=== PATIENT | male | born 2000 | race African-American/Black ===

== ENCOUNTER 2020-02-29 15:41 | Emergency (ER) | payer SELFPAY ==
[~2020-02-29] VITALS: Ht 170.2 cm; Wt 81.6 kg
[2020-02-29] MEDS ORDERED: SODIUM CHLORIDE 0.9% 1000ML 1,000 ML IV STA (16:18)
[2020-02-29] MEDS ORDERED: ONDANSETRON HCL INJ 2MG/ML 2ML 2 MG/ML VIAL IV STA (16:18)
--- NOTE | 2020-02-29 16:18 | Emergency Department Note ---
History of Present Illnes History of Present Illness Chief Complaint: Abdominal Complaints History of Present Illness This is a 19 year old male complaining of epigastric abdominal pain for several days. Days, states he was diagnosed with gastritis in the past but this feels different.. Chief Complaint Comment C/O CONSTANT EPIGASTRIC PAIN RADIATING TO LOWER ABD STARTED SUN C/O N/V/D STATES HE NOTICED DARK RED BLOOD IN STOOLS AND NOTICED SOME BLOOD IN VOMIT LAST MEAL SUN AT [employer] SINCE THEN ANYTIME HE EATS HE VOMITS STATES HE STOPPED SMOKING MARIJUANA LAST WEEK DENIES ETOH DENIES TOBACCO USE DENIES DYSURIA/HEMATURIA STILL HAS APPENDIX/GALLBLADDER STATES PAIN IS WORSE WHEN EATING Historian: Patient Arrival Mode: Car Onset (how long ago): week(s) Radiation: Reports non-radiation Severity: moderate Onset quality: gradual Duration (how long): day(s) Timing of current episode: constant Progression: worsening Chronicity: new Relieving factors: none Exacerbating factors: none Past Medical/Family History Physician Review I have reviewed the patient's past medical and family history. Any updates have been documented here. Past Medical History Recent Fever: No Clinical Suspicion of Infectio: No New/Unexplained Change in Ment: No Past Medical History: None Past Surgical History: None Social History Smoking Cessation: Former smoker Alcohol Use: Social Physically hurt or threatened: No Review of Systems Review of Systems Constitutional: Reports no symptoms EENTM: Reports no symptoms Cardiovascular: Reports no symptoms Respiratory: Reports no symptoms Gastrointestinal: Reports as per HPI, Reports abdominal pain Genitourinary: Reports no symptoms Musculoskeletal: Reports no symptoms Integumentary: Reports no symptoms Neurological: Reports no symptoms Psychological: Reports no symptoms Endocrine: Reports no symptoms Hematological/Lymphatic: Reports no symptoms Physical Exam Related Data Allergies: Coded Allergies: No Known Allergies (Unverified , 02/29/20) Triage Vital Signs Vital Signs Date Time Temp Pulse Resp B/P (MAP) Pulse Ox O2 Delivery O2 Flow Rate FiO2 02/29/20 15:53 98.4 77 18 131/74 100 Room Air Vital signs reviewed: Yes Physical Exam CONSTITUTIONAL Constitutional: Present well-developed, Present well-nourished HENT HENT: Present normocephalic, Present atraumatic, Present oropharynx clear/moist, Present nose normal HENT L/R: Present left ext ear normal, Present right ext ear normal EYES Eyes: Reports PERRL, Reports conjunctivae normal NECK Neck: Present ROM normal PULMONARY Pulmonary: Present effort normal, Present breath sounds normal CARDIOVASCULAR Cardiovascular: Present regular rhythm, Present heart sounds normal, Present capillary refill normal, Present normal rate GASTROINTESTINAL Abdominal: Present soft, Present nontender, Present tender GENITOURINARY Genitourinary: Present exam deferred SKIN Skin: Present warm, Present dry MUSCULOSKELETAL Musculoskeletal: Present ROM normal NEUROLOGICAL Neurological: Present alert, Present oriented x 3, Present no gross motor or sensory deficits PSYCHOLOGICAL Psychological: Present mood/affect normal, Present judgement normal Results Laboratory Lab results reviewed: Yes Imaging Imaging results reviewed: Yes Assessment & Plan Medical Decision Making MDM 19 oh male arrives the ED with abdominal pain, no concerns of acute surgical process. Patient noted relief with antiemetics, pain medicine and Protonix. Patient CT findings consistent gastritis. Spoke to patient at length about bland diet and avoiding acidic foods. Patient expressed understanding. Outpatient GI follow-up given. Assessment & Plan Final Impression: (1) Gastritis Depart Disposition: HOME, SELF-CARE Last Vital Signs Date Time Temp Pulse Resp B/P (MAP) Pulse Ox O2 Delivery O2 Flow Rate FiO2 02/29/20 15:53 98.4 77 18 131/74 100 Room Air Home Meds Active Scripts Omeprazole (OMEPRAZOLE) 40 Mg Capsule., 40 MG PO DAILY, #28 Prov:EVA WORLEY DO 02/29/20 EVA WORLEY DO Feb 29, 2020 16:18
[2020-02-29 16:25] LABS: BASOPHILS % 0.4 % (0.0-1.0); EOSINOPHILS % 0.2 % (0.0-6.0); HEMOGLOBIN 14.3 g/dL (14.0-18.0); LYMPHOCYTES # (AUTO) 2.8 (1.0-3.2); LYMPHOCYTES % 29.1 % (18.0-39.1); MEAN CORPUSCULAR HGB CONC 32.5 g/dL (31-35); MEAN CORPUSCULAR VOLUME 83.2 fL (81-99); MONOCYTES # (AUTO) 0.6 (0.2-0.8); NEUTROPHILS # (AUTO) 6.1 (2.1-6.9); PLATELET COUNT 226 x10e3/uL (140-360); RED BLOOD COUNT 5.29 x10e6/uL (4.3-5.7); RED CELL DISTRIBUTION WIDTH 11.8 % (11.7-14.4)
[2020-02-29] MEDS ORDERED: MORPHINE SULFATE INJ 4 MG/ML INJ 1ML IV PRN (16:30)
[2020-02-29 16:34] LABS: CLARITY,URINE CLEAR (CLEAR); COLOR,URINE YELLOW (YELLOW); KETONES,URINE 2+ (NEGATIVE); LEUKOCYTE ESTERASE ,URINE NEGATIVE (NEGATIVE); NITRITE,URINE NEGATIVE (NEGATIVE); URINE UROBILINOGEN 0.2 mg/dL (0.2 - 1)
[2020-02-29 16:35] LABS: BILIRUBIN,URINE MODERATE (NEGATIVE); PROTEIN,URINE DIPSTICK TRACE (NEGATIVE)
[2020-02-29 16:39] LABS: BLOOD UREA NITROGEN 15 mg/dL (7-26); CARBON DIOXIDE 20 mmol/L (22-29); CHLORIDE 105 mmol/L (98-107); CREATININE, SERUM 0.92 mg/dL (0.72-1.25); SODIUM 140 mmol/L (136-145)
[2020-02-29 16:40] LABS: ALANINE AMINOTRANSFERASE 19 IU/L (0-55); ALBUMIN 4.7 g/dL (3.5-5.0); ALBUMIN/GLOBULIN RATIO 1.5 (0.8-2.0); ALKALINE PHOSPHATASE 122 IU/L (40-150); BUN/CREATININE RATIO 16 (6-25); CALCIUM 9.9 mg/dL (8.4-10.2); EST GLOMERULAR FILTRATION RATE > 60 ML/MIN (60-); GLUCOSE 80 mg/dL (74-118)
[2020-02-29 16:47] LABS: WBC,URINE (MAN) 0-5 /HPF (0-5)
[2020-02-29 16:48] LABS: BACTERIA,URINE FEW /HPF; EPITHELIAL CELLS,URINE FEW /LPF; MUCUS,URINE MANY (RARE); RBC,URINE 0-5 /HPF (0-5)
[2020-02-29] MEDS ORDERED: SODIUM CHLORIDE 0.9% 50ML 50 ML ONE ×2 (17:22)
[2020-02-29] MEDS ORDERED: IOPAMIDOL 370 MG/ML 200 ML INFUS..BTL INJ ONE (17:22)
--- OUTSIDE RECORDS SUMMARY | 2020-02-29 17:38 | XMS REPORT | Continuity of Care Document ---
Author Author [facility] t Organization [facility] Address [address] [place] [address] Phone Unavailable Care Team Providers Care Lidar Scientist Name Role Phone Unavailable Unavailable Payers Payer Name Policy Type Policy Number Effective Date Expiration Date S ource Problems This patient has no known problems. Allergies, Adverse Reactions, Alerts Allergy Name Allergy Type Status Severity Reaction(s) Onset Date Inacti ve Date Treating Clinician Comments Source No Known Allergies DA Active U 2016-12-16 00:00:00 [facility] Medications This patient has no known medications. Procedures This patient has no known procedures. Results Test Description Test Time Test Comments Results Result Comments Source - CT ABD PELVIS W/CONT 2019-12-17 10:01:00 Estiven e: MELIDA LOVE [facility] : 2000 Age/S: 19 / M [address] [facility] Unit #: [id number] Loc: [place] [address] Phys: Jeanne Dobson MD Acct: [id number] Dis Date: Status: REG ER PHONE #: [phone] Exam Date: 12/17/2019 0955 FAX #: [phone] Reason: generalized abdominal cramping, n/v/d EXAMS: CPT CODE: [id number] CT ABD PELVIS W/CONT 80609 HISTORY: Abdominal pain and cramping. COMPARISON: CT scan from July 20162018. Location: TH. CT of abdomen and pelvis with IV contrast: Automated exposure control. CT ABDOMEN: The lung bases are clear. Dependent changes. Nodular rounded atelectasis within the right middle lobe anteromedially. 5.3 mm noncalcified right lateral basal subpleural lung nodule. The liver is enhancing homogeneously. No parenchymal mass or nodules. Portal vein and hepatic artery are patent. Gallbladder is without radiopaque stones. The liver is measuring 17 cm in length. The spleen is enhancing homogeneously. The spleen is not enlarged. The stomach distended incompletely however it is normal in appearance. Pancreas is enhancing homogeneously. Adrenals are normal. Kidneys are free from hydroureteronephrosis. Homogeneous enhancement. Bilateral excretion. No pathologic adenopathy. Well-opacified abdominal and pelvic vasculature. No bowel obstruction. Mild left colitis with circumferential wall thickening. Small bowel loops are normal. CT PELVIS: Appendix is normal. Pelvic bowel loops are unobstructed with circumferential wall thickening of the left colon with pericolonic inflammation and extending to the proximal sigmoid colon. No free fluid or free air or abscess. Unremarkable urinary bladder distended incompletely. The prostate is within normal limits. No pelvic pathologic adenopathy. Subcutaneous tissues and the musculature demonstrating mild right gynecomastia. No lytic or blastic lesions visible within the bony skeleton. PAGE 1 Signed Report (CONTINUED) Name: MELIDA LOVE [facility] : 2000 Age/S: 19 / M [address] [facility] Unit #: [id number] Loc: [place] [address] Phys: Jeanne Dobson MD Acct: [id number] Dis Date: Status: REG ER PHONE #: [phone] Exam Date: 12/17/2019 3756 FAX #: [phone] Reason: generalized abdominal cramping, n/v/d EXAMS: CPT CODE: [id number] CT ABD PELVIS W/CONT 82493 <Continued> IMPRESSION: Mild left and sigmoid colitis without free fluid, free air or abscess. Mild right gynecomastia. 5.3 mm anterolateral subpleural right basal lung nodule. This was barely visible on the exam of July 20162018. at 1001 Reported and signed by: Elijah Rodriguez M.D. CC: Jeanne Dobson MD; Riki Moreira Technologist:Wendy Bates CTDI: DLP: Trnscb Date/Time: 12/17/2019 (1001) [email or web address] Orig Print D/T: S: 12/17/2019 (1004) PAGE 2 Signed Report COMPREHENSIVE METABOLIC PANEL 2019-12-17 09:08:00 Test Item SODIUM (test code = NA) 141 mmol/L 136-145 N POTASSIUM (test code = K) 3.6 mmol/L 3.5-5.1 N CHLORIDE (test code = CL) 104 mmol/L 101-109 N CARBON DIOXIDE (test code = CO2) 28.1 mmol/L 21-32 N ANION GAP (test code = GAP) 13 mmol/L 10-20 N GLUCOSE (test code = GLU) 115 mg/dL 74-106 H BLOOD UREA NITROGEN (test code = BUN) 11 mg/dL 3-21 N CREATININE (test code = CREAT) 1.14 mg/dL 0.55-1.3 N BUN/CREATININE RATIO (test code = BUN/CREA) 9.6 10-20 L TOTAL PROTEIN (test code = PROT) 7.6 g/dL 6.5-8.4 N ALBUMIN (test code = ALB) 4.2 g/dL 3.4-4.8 N GLOBULIN (test code = GLOB) 3.4 G/DL 1-10 N ALBUMIN/GLOBULIN RATIO (test code = A/G) 1.24 RATIO 0.75-1.50 N CALCIUM (test code = CA) 9.1 mg/dL 8.4-10.2 N BILIRUBIN TOTAL (test code = BILT) 0.80 mg/dL 0.0-1.0 N SGOT/AST (test code = AST) 28 U/L 6-32 N SGPT/ALT (test code = ALT) 45 U/L 12-78 N N ote: Change in REFERENCE RANGE due to new reagent method. ALKALINE PHOSPHATASE TOTAL (test code = ALKP) 149 U/L 38-126 H [id number] 09:08:00* Test Item Value Reference Range Interpretation Comments LIPASE (test code = LIP) 93 U/L 128-270 L URINALYSIS [id number] 09:08:00* Test Item Value Reference Range Interpretation Comments UA COLOR (test code = COLU) YELLOW YELLOW UA APPEARANCE (test code = APPU) CLEAR CLEAR UA GLUCOSE DIPSTICK (test code = DGLUU) norm mg/dL NEGATIVE UA BILIRUBIN DIPSTICK (test code = BILU) NEGATIVE mg/dL NEGATIVE UA KETONE DIPSTICK (test code = KETU) neg mg/dL NEGATIVE UA SPECIFIC GRAVITY (test code = SGU) 1.020 1.001-1.035 UA BLOOD DIPSTICK (test code = CARLITOS) neg Oni/uL NEGATIVE UA PH DIPSTICK (test code = GREER) 6.0 5.0-8.0 UA PROTEIN DIPSTICK (test code = PROU) 30 (1+) mg/dL Neg-15 A UA UROBILINIOGEN DIPSTICK (test code = URO) 1 mg/dL 0.0-0.2 A UA NITRITE DIPSTICK (test code = ERROL) NEGATIVE NEGATIVE UA LEUKOCYTE ESTERASE DIPSTICK (test code = LEUU) neg uL NEGA TIVE UA WBC (test code = WBCU) 0-5 per HPF 0-5 UA RBC (test code = RBCU) 0-3 per HPF 0-5 UA EPITHELIAL CELLS (test code = EPIU) Few (2-5/hpf) per HPF Few UA BACTERIA (test code = BACU) FEW per HPF NONE Urine Source? Clean CatchDRUGS OF ABUSE SCREEN [id number] 09:08:00* Test Item Value Reference Range Interpretation Comments URN COCAINE (test code = COCAURN) NEGATIVE NEGATIVE URN CANNABINOIDS (test code = CANNABURN) POSITIVE NEGATIVE A URN AMPHETAMINE (test code = AMPHETURN) NEGATIVE NEGATIVE URN BARBITURATE (test code = BARBITURN) NEGATIVE NEGATIVE URN BENZODIAZEPINE (test code = BENZOURN) NEGATIVE NEGATIVE URN OPIATES (test code = OPIATURN) NEGATIVE NEGATIVE URN PHENCYCLIDINE (PCP) (test code = PHENCURN) NEGATIVE NEGATIV E Urine Source? Clean [id number] 09:02:00* Test Item Value Reference Range Interpretation Comments ALCOHOL (test code = ALC) <3.0 mg/dL 0.0-3.0 N -- INTERPRETIVE DATA NOTE: POSITIVE SCREENING RESULTS SHOULD BE CONSIDERED PRESUMPTIVE.WHEN COLLECTED FOR MEDICAL PURPOSES ONLY. SPECIMEN WILL NOTBE COLLECTED BY CHAIN OF CUSTODY.IF A CONFIRMATION OF POSITIVE RESULTS IS DESIRED, ACONFIRMATION TEST MUST BE REQUESTED BY THE PHYSICIAN AT ANADDITIONAL CHARGE TO THE PATIENT. URINALYSIS [id number] 09:01:00* Test Item Value Reference Range Interpretation Comments UA COLOR (test code = COLU) YELLOW YELLOW UA APPEARANCE (test code = APPU) CLEAR CLEAR UA GLUCOSE DIPSTICK (test code = DGLUU) norm mg/dL NEGATIVE UA BILIRUBIN DIPSTICK (test code = BILU) NEGATIVE mg/dL NEGATIVE UA KETONE DIPSTICK (test code = KETU) neg mg/dL NEGATIVE UA SPECIFIC GRAVITY (test code = SGU) 1.020 1.001-1.035 UA BLOOD DIPSTICK (test code = CARLITOS) neg Oni/uL NEGATIVE UA PH DIPSTICK (test code = GREER) 6.0 5.0-8.0 UA PROTEIN DIPSTICK (test code = PROU) 30 (1+) mg/dL Neg-15 A UA UROBILINIOGEN DIPSTICK (test code = URO) 1 mg/dL 0.0-0.2 A UA NITRITE DIPSTICK (test code = ERROL) NEGATIVE NEGATIVE UA LEUKOCYTE ESTERASE DIPSTICK (test code = LEUU) neg uL NEGA TIVE UA WBC (test code = WBCU) 0-5 per HPF 0-5 UA RBC (test code = RBCU) 0-3 per HPF 0-5 UA EPITHELIAL CELLS (test code = EPIU) Few (2-5/hpf) per HPF Few UA BACTERIA (test code = BACU) FEW per HPF NONE Urine Source? Clean CatchDRUGS OF ABUSE SCREEN [id number] 09:01:00* Test Item Value Reference Range Interpretation Comments URN COCAINE (test code = COCAURN) NEGATIVE URN CANNABINOIDS (test code = CANNABURN) NEGATIVE URN AMPHETAMINE (test code = AMPHETURN) NEGATIVE URN BARBITURATE (test code = BARBITURN) NEGATIVE URN BENZODIAZEPINE (test code = BENZOURN) NEGATIVE URN OPIATES (test code = OPIATURN) NEGATIVE URN PHENCYCLIDINE (PCP) (test code = PHENCURN) NEGATIV E Urine Source? Clean CatchCOMPREHENSIVE METABOLIC [id number] 09:01:00* Test Item Value Reference Range Interpretation Comments SODIUM (test code = NA) 141 mmol/L 136-145 N POTASSIUM (test code = K) 3.6 mmol/L 3.5-5.1 N CHLORIDE (test code = CL) 104 mmol/L 101-109 N CARBON DIOXIDE (test code = CO2) 28.1 mmol/L 21-32 N ANION GAP (test code = GAP) 13 mmol/L 10-20 N GLUCOSE (test code = GLU) 115 mg/dL 74-106 H BLOOD UREA NITROGEN (test code = BUN) 11 mg/dL 3-21 N CREATININE (test code = CREAT) 1.14 mg/dL 0.55-1.3 N BUN/CREATININE RATIO (test code = BUN/CREA) 9.6 10-20 L TOTAL PROTEIN (test code = PROT) gram/dL 6.4-8.2 ALBUMIN (test code = ALB) g/dL 3.4-5.0 GLOBULIN (test code = GLOB) g/dL 2.7-4.2 ALBUMIN/GLOBULIN RATIO (test code = A/G) 0.75-1.50 CALCIUM (test code = CA) 9.1 mg/dL 8.4-10.2 N BILIRUBIN TOTAL (test code = BILT) mg/dL 0.2-1.2 SGOT/AST (test code = AST) IUnit/L 15-37 SGPT/ALT (test code = ALT) U/L 10-69 ALKALINE PHOSPHATASE TOTAL (test code = ALKP) IUnit/L 65-260 [id number] 09:01:00* Test Item Value Reference Range Interpretation Comments LIPASE (test code = LIP) Unit/L 144-286 CBC W/AUTO [id number] 08:53:00* Test Item Value Reference Range Interpretation Comments WHITE BLOOD CELL (test code = WBC) 11.9 K/mm3 4.5-12.5 N RED BLOOD CELL (test code = RBC) 5.35 mill/mm3 4.0-5.8 N HEMOGLOBIN (test code = HGB) 14.9 gram/dL 13.0-17.5 N HEMATOCRIT (test code = HCT) 44.5 % 42.0-52.0 N MEAN CELL VOLUME (test code = MCV) 83.2 fL 80-98 N MEAN CELL HGB (test code = MCH) 27.9 picogram 27.0-33.0 N MEAN CELL HGB CONCETRATION (test code = MCHC) 33.5 gram/dL 33.0-36. 0 N RED CELL DISTRIBUTION WIDTH (test code = RDW) 12.0 % 11.6-16. 2 N RED CELL DISTRIBUTION WIDTH SD (test code = RDW-SD) 37.0 fL 37 .0-51.0 N PLATELET COUNT (test code = PLT) 215 K/mm3 150-450 N MEAN PLATELET VOLUME (test code = MPV) 10.2 fL 6.7-11.0 N NEUTROPHIL % (test code = NT%) 72.7 % 39.0-69.0 H LYMPHOCYTE % (test code = LY%) 20.0 % 25.0-55.0 L MONOCYTE % (test code = MO%) 5.6 % 0.0-10.0 N EOSINOPHIL % (test code = EO%) 1.1 % 0.0-5.0 N BASOPHIL % (test code = BA%) 0.3 % 0.0-1.0 N NEUTROPHIL # (test code = NT#) 8.64 K/mm3 1.8-7.7 H LYMPHOCYTE # (test code = LY#) 2.37 K/mm3 1.0-5.0 N MONOCYTE # (test code = MO#) 0.67 K/mm3 0-0.8 N EOSINOPHIL # (test code = EO#) 0.13 K/mm3 0.0-0.5 N BASOPHIL # (test code = BA#) 0.03 K/mm3 0.0-0.2 N MANUAL DIFF REQUIRED (test code = MDIFF) NO URINALYSIS [id number] 08:53:00* Test Item Value Reference Range Interpretation Comments UA COLOR (test code = COLU) YELLOW YELLOW UA APPEARANCE (test code = APPU) CLEAR CLEAR UA GLUCOSE DIPSTICK (test code = DGLUU) norm mg/dL NEGATIVE UA BILIRUBIN DIPSTICK (test code = BILU) NEGATIVE mg/dL NEGATIVE UA KETONE DIPSTICK (test code = KETU) neg mg/dL NEGATIVE UA SPECIFIC GRAVITY (test code = SGU) 1.020 1.001-1.035 UA BLOOD DIPSTICK (test code = CARLITOS) neg Oni/uL NEGATIVE UA PH DIPSTICK (test code = GREER) 6.0 5.0-8.0 UA PROTEIN DIPSTICK (test code = PROU) 30 (1+) mg/dL Neg-15 A UA UROBILINIOGEN DIPSTICK (test code = URO) 1 mg/dL 0.0-0.2 A UA NITRITE DIPSTICK (test code = ERROL) NEGATIVE NEGATIVE UA LEUKOCYTE ESTERASE DIPSTICK (test code = LEUU) neg uL NEGA TIVE UA WBC (test code = WBCU) per HPF 0-5 UA RBC (test code = RBCU) per HPF 0-5 UA EPITHELIAL CELLS (test code = EPIU) per HPF Few UA BACTERIA (test code = BACU) per HPF NONE Urine Source? Clean CatchDRUGS OF ABUSE SCREEN [id number] 08:53:00* Test Item Value Reference Range Interpretation Comments URN COCAINE (test code = COCAURN) NEGATIVE URN CANNABINOIDS (test code = CANNABURN) NEGATIVE URN AMPHETAMINE (test code = AMPHETURN) NEGATIVE URN BARBITURATE (test code = BARBITURN) NEGATIVE URN BENZODIAZEPINE (test code = BENZOURN) NEGATIVE URN OPIATES (test code = OPIATURN) NEGATIVE URN PHENCYCLIDINE (PCP) (test code = PHENCURN) NEGATIV E Urine Source? Clean Catch- XR ANKLE 3 + V [id number] 15:29:00 Name: MELIDA LOVE [facility] : 2000 Age/S:19 /M [address] [facility] Unit#:[id number] Loc: [place] [address] Phys: Blair Tello [employer] Dis Date: PHONE #: [phone] Status: PRE ER FAX #: [phone] Exam Date: 08/24/2019 Re ason: injury EXAMS: CPT CODE: [id number] XR ANKLE 3 + [place] LT [id number] REASON FOR E XAM: injury EXAM ORDER DATE: 08/24/2019 3:14 PM Order ing: Sarah Tello NP Attending: Location:[facility] OCEDURE: - XR ANKLE 3 + V LT FINDINGS: 3 views of the left ankle were obtained. The osseous structures are unremarkable in size and shape. The joint spaces are maintained. No evidence of fracture. The syndesmosis is intact. IMPRESSION: Mild focal soft tissue swelling in the lateral malleolus 20 at 1529 Reported and signed by: Bereket Shankar M.D. CC: Aashish Tam MD; Sarah Tello NP Techn ologist: Wendy Bates Trnscrpt Data: 0 08/24/2019 (1529) t.[email or web address].[email or web address] PAGE 1 Signed Report STREPTOCOCCUS PCR [id number] 03:24:00* Test Item Value Reference Range Interpretation Comments STREPTOCOCCUS DYSGALACTIAE (test code = STREPGC) NEGATIVE FOR G/C N EGATIVE STREPA MOLECULAR (test code = STREPAMOL) NEGATIVE FOR GRP A NEGATIV E - XR CHEST 1 [id number] 12:29:00 Name: MELIDA LOVE [facility] : 2000 Age/S:18 /M [address] [facility] Unit#:[id number] Loc: [place] [address] Phys: Keon Eduardo MD Dis Date: PHONE #: [phone] Status: REG ER FAX #: [phone] Exam Date: 03/13/2019 Reason: CP EXAMS: CPT CODE: [id number] XR CHEST 1 V [id number] REASON FOR EXAM: CP Exam Order Date: 03/13/2019 11:23 AM Ordering Lotus: Keon Eduardo MD PROCEDURE: - XR CHEST 1 V COMPARISON: Abdominal series April 10, 2016 FINDINGS: The lungs are clear. There is no pleural effusion or pneumothorax. Pulmonary vascularity is within normal limits. Cardiomediastinal silhouette is normal in size for technique. The mediastinal contours are within normal limits. Musculoskeletal structures are within normal limits. The visualized upper abdomen is within normal limits. IMPRESSION: No acute cardiopulmonary process. at 1229 Reported and signed by: Issac Gibbons MD CC: Aashish Tam MD; Melonie Eduardo MD Technologist: Wendy Bates Trnscrpt Data: 03/13/2019 (1229) [email or web address] Orig Print D/T: S: 03/13/2019 (0112) PAGE 1 Signed Report [id number] 12:10:00* Test Item Value Reference Range Interpretation Comments TROPONIN-I (test code = TROPI) <0.015 ng/mL 0.00-0.056 N COMPREHENSIVE METABOLIC [id number] 12:10:00* Test Item Value Reference Range Interpretation Comments SODIUM (test code = NA) 141 mmol/L 136-145 N POTASSIUM (test code = K) 4.4 mmol/L 3.5-5.1 N CHLORIDE (test code = CL) 106 mmol/L 101-109 N CARBON DIOXIDE (test code = CO2) 28.3 mmol/L 21-32 N ANION GAP (test code = GAP) 11 mmol/L 10-20 N GLUCOSE (test code = GLU) 102 mg/dL 74-106 N BLOOD UREA NITROGEN (test code = BUN) 12 mg/dL 3-21 N CREATININE (test code = CREAT) 1.04 mg/dL 0.55-1.3 N BUN/CREATININE RATIO (test code = BUN/CREA) 11.5 10-20 N TOTAL PROTEIN (test code = PROT) 7.7 g/dL 6.5-8.4 N ALBUMIN (test code = ALB) 4.2 g/dL 3.4-4.8 N GLOBULIN (test code = GLOB) 3.5 G/DL 1-10 N ALBUMIN/GLOBULIN RATIO (test code = A/G) 1.20 RATIO 0.75-1.50 N CALCIUM (test code = CA) 9.0 mg/dL 8.4-10.2 N BILIRUBIN TOTAL (test code = BILT) 0.70 mg/dL 0.0-1.0 N SGOT/AST (test code = AST) 17 U/L 6-32 N SGPT/ALT (test code = ALT) 27 U/L 12-78 N N ote: Change in REFERENCE RANGE due to new reagent method. ALKALINE PHOSPHATASE TOTAL (test code = ALKP) 142 U/L 38-126 H CPK-MB [id number] 12:10:00* Test Item Value Reference Range Interpretation Comments CREATINE KINASE (CK) (test code = CK) 119 U/L 39-308 N CKMB (test code = CKMBT) 0.7 ng/mL 0.0-5.0 N RELATIVE % INDEX (test code = REL%) 0.6 % [id number] 12:05:00* Test Item Value Reference Range Interpretation Comments D-DIMER (test code = DDIMER) < 100 ng/ml < 600 URINALYSIS [id number] 11:58:00* Test Item Value Reference Range Interpretation Comments UA COLOR (test code = COLU) YELLOW YELLOW UA APPEARANCE (test code = APPU) CLEAR CLEAR UA GLUCOSE DIPSTICK (test code = DGLUU) norm mg/dL NEGATIVE UA BILIRUBIN DIPSTICK (test code = BILU) NEGATIVE mg/dL NEGATIVE UA KETONE DIPSTICK (test code = KETU) neg mg/dL NEGATIVE UA SPECIFIC GRAVITY (test code = SGU) 1.025 1.001-1.035 UA BLOOD DIPSTICK (test code = CARLITOS) neg Oni/uL NEGATIVE UA PH DIPSTICK (test code = GREER) 6.0 5.0-8.0 UA PROTEIN DIPSTICK (test code = PROU) neg mg/dL Neg-15 UA UROBILINIOGEN DIPSTICK (test code = URO) 1 mg/dL 0.0-0.2 A UA NITRITE DIPSTICK (test code = ERROL) NEGATIVE NEGATIVE UA LEUKOCYTE ESTERASE DIPSTICK (test code = LEUU) neg uL NEGA TIVE UA WBC (test code = WBCU) 0-5 per HPF 0-5 UA RBC (test code = RBCU) 0-3 per HPF 0-5 UA EPITHELIAL CELLS (test code = EPIU) None seen per HPF Few UA BACTERIA (test code = BACU) NONE SEEN per HPF NONE Urine Source? Clean CatchCOMPREHENSIVE METABOLIC [id number] 11:53:00* Test Item Value Reference Range Interpretation Comments SODIUM (test code = NA) 141 mmol/L 136-145 N POTASSIUM (test code = K) 4.4 mmol/L 3.5-5.1 N CHLORIDE (test code = CL) 106 mmol/L 101-109 N CARBON DIOXIDE (test code = CO2) 28.3 mmol/L 21-32 N ANION GAP (test code = GAP) 11 mmol/L 10-20 N GLUCOSE (test code = GLU) 102 mg/dL 74-106 N BLOOD UREA NITROGEN (test code = BUN) 12 mg/dL 3-21 N CREATININE (test code = CREAT) 1.04 mg/dL 0.55-1.3 N BUN/CREATININE RATIO (test code = BUN/CREA) 11.5 10-20 N TOTAL PROTEIN (test code = PROT) gram/dL 6.4-8.2 ALBUMIN (test code = ALB) g/dL 3.4-5.0 GLOBULIN (test code = GLOB) g/dL 2.7-4.2 ALBUMIN/GLOBULIN RATIO (test code = A/G) 0.75-1.50 CALCIUM (test code = CA) 9.0 mg/dL 8.4-10.2 N BILIRUBIN TOTAL (test code = BILT) mg/dL 0.2-1.2 SGOT/AST (test code = AST) IUnit/L 15-37 SGPT/ALT (test code = ALT) U/L 10-69 ALKALINE PHOSPHATASE TOTAL (test code = ALKP) IUnit/L 65-260 CPK-MB [id number] 11:53:00* Test Item Value Reference Range Interpretation Comments CREATINE KINASE (CK) (test code = CK) IUnit/L 26-208 CKMB (test code = CKMBT) ng/mL 0-6.0 RELATIVE % INDEX (test code = REL%) % URINALYSIS [id number] 11:49:00* Test Item Value Reference Range Interpretation Comments UA COLOR (test code = COLU) YELLOW YELLOW UA APPEARANCE (test code = APPU) CLEAR CLEAR UA GLUCOSE DIPSTICK (test code = DGLUU) norm mg/dL NEGATIVE UA BILIRUBIN DIPSTICK (test code = BILU) NEGATIVE mg/dL NEGATIVE UA KETONE DIPSTICK (test code = KETU) neg mg/dL NEGATIVE UA SPECIFIC GRAVITY (test code = SGU) 1.025 1.001-1.035 UA BLOOD DIPSTICK (test code = CARLITOS) neg Oni/uL NEGATIVE UA PH DIPSTICK (test code = GREER) 6.0 5.0-8.0 UA PROTEIN DIPSTICK (test code = PROU) neg mg/dL Neg-15 UA UROBILINIOGEN DIPSTICK (test code = URO) 1 mg/dL 0.0-0.2 A UA NITRITE DIPSTICK (test code = ERROL) NEGATIVE NEGATIVE UA LEUKOCYTE ESTERASE DIPSTICK (test code = LEUU) neg uL NEGA TIVE UA WBC (test code = WBCU) per HPF 0-5 UA RBC (test code = RBCU) per HPF 0-5 UA EPITHELIAL CELLS (test code = EPIU) per HPF Few UA BACTERIA (test code = BACU) per HPF NONE Urine Source? Clean CatchCBC W/AUTO [id number] 11:45:00* Test Item Value Reference Range Interpretation Comments WHITE BLOOD CELL (test code = WBC) 8.4 K/mm3 4.5-12.5 N RED BLOOD CELL (test code = RBC) 5.36 mill/mm3 4.0-5.8 N HEMOGLOBIN (test code = HGB) 14.5 gram/dL 13.0-17.5 N HEMATOCRIT (test code = HCT) 45.3 % 42.0-52.0 N MEAN CELL VOLUME (test code = MCV) 84.5 fL 80-98 N MEAN CELL HGB (test code = MCH) 27.1 picogram 27.0-33.0 N MEAN CELL HGB CONCETRATION (test code = MCHC) 32.0 gram/dL 33.0-36. 0 L RED CELL DISTRIBUTION WIDTH (test code = RDW) 12.2 % 11.6-16. 2 N RED CELL DISTRIBUTION WIDTH SD (test code = RDW-SD) 38.0 fL 37 .0-51.0 N PLATELET COUNT (test code = PLT) 234 K/mm3 150-450 N MEAN PLATELET VOLUME (test code = MPV) 10.0 fL 6.7-11.0 N NEUTROPHIL % (test code = NT%) 54.4 % 39.0-69.0 N LYMPHOCYTE % (test code = LY%) 36.4 % 25.0-55.0 N MONOCYTE % (test code = MO%) 6.9 % 0.0-10.0 N EOSINOPHIL % (test code = EO%) 1.4 % 0.0-5.0 N BASOPHIL % (test code = BA%) 0.5 % 0.0-1.0 N NEUTROPHIL # (test code = NT#) 4.58 K/mm3 1.8-7.7 N LYMPHOCYTE # (test code = LY#) 3.06 K/mm3 1.0-5.0 N MONOCYTE # (test code = MO#) 0.58 K/mm3 0-0.8 N EOSINOPHIL # (test code = EO#) 0.12 K/mm3 0.0-0.5 N BASOPHIL # (test code = BA#) 0.04 K/mm3 0.0-0.2 N BASIC METABOLIC [id number] 16:00:00* Test Item Value Reference Range Interpretation Comments SODIUM (test code = NA) 141 mmol/L 136-145 N POTASSIUM (test code = K) 3.9 mmol/L 3.5-5.1 N CHLORIDE (test code = CL) 108.0 mmol/L 98-107 H CARBON DIOXIDE (test code = CO2) 26.0 mmol/L 21-32 N ANION GAP (test code = GAP) 10.9 10-20 N GLUCOSE (test code = GLU) 97 mg/dL 74-106 N BLOOD UREA NITROGEN (test code = BUN) 11 mg/dL 7-18 N GLOMERULAR FILTRATION RATE (test code = GFR) > 60 mL/min >=60 Estimated GFR by using Modified MDRD formula.Chronic kidney disease is defined as either kidney damageor GFR <60 mL/min/1.73 m2 for >3 months. CREATININE (test code = CREAT) 0.80 mg/dL 0.7-1.3 N BUN/CREATININE RATIO (test code = BUN/CREA) 13.8 10-20 N CALCIUM (test code = CA) 8.6 mg/dL 8.5-10.1 N BASIC METABOLIC [id number] 15:54:00* Test Item Value Reference Range Interpretation Comments SODIUM (test code = NA) 141 mmol/L 136-145 N POTASSIUM (test code = K) 3.9 mmol/L 3.5-5.1 N CHLORIDE (test code = CL) 108.0 mmol/L 98-107 H CARBON DIOXIDE (test code = CO2) mmol/L 21-32 ANION GAP (test code = GAP) mmol/L 10-20 GLUCOSE (test code = GLU) mg/dL 74-106 BLOOD UREA NITROGEN (test code = BUN) mg/dL 3-21 GLOMERULAR FILTRATION RATE (test code = GFR) mL/min >=60 CREATININE (test code = CREAT) mg/dL 0.55-1.3 BUN/CREATININE RATIO (test code = BUN/CREA) 10-20 CALCIUM (test code = CA) mg/dL 8.4-10.2 - CT HEAD/BRAIN W/O [id number] 04:15:00 Name: MELIDA LOVE [facility] : 2000 Age/S: 18 / M [address] [facility] Unit #: [id number] Loc: [place] [address] Phys: Lydia Garcia MD Acct: [id number] Dis Date: Status: REG ER PHONE #: [phone] Exam Date: 11/28/2018 0408 FAX #: [phone] Reason: ALTERED MENTAL STATUS EXAMS: CPT CODE: [id number] CT HEAD/BRAIN W/O CONT [id number] EXAM: - CT HEAD/BRAIN W/O CONT HISTORY: AMS. TECHNIQUE: Axial tomograms through the brain were obtained without intravenous contrast. This exam was performed according to our departmental dose-optimization program, which includes automated exposure control, adjustment of the mA and/or kV according to patient size and/or use of iterative reconstruction technique. COMPARISON: None available time of interpretation. FINDINGS: There is no intracranial hemorrhage, mass, or mass effect. The ventricular system and sulci are age-appropriate. There is no evidence of acute infarction. The osseous structures and orbits, show no significant abnormalities. The visualized sinuses are relatively clear. The soft tissues are unremarkable. IMPRESSION: No acute intracranial abnormality with no evidence of intracranial hemorrhage. at 0415 Reported and signed by: Loki Jose MD CC: Lydia Garcia MD; Aashish Tam MD Technologist:LIVE ANTHOYN RT(R),CT CTDI: DLP: Trnscb Date/Time: 11/28/2018 (3956) [id number] Orig Print D/T: S: 11/28/2018 ([id number]) PAGE 1 Signed Report [id number] 00:21:00* Test Item Value Reference Range Interpretation Comments ACETAMINOPHEN (test code = ACET) < 10 mcg/mL 0-30 N A RANGE OF 10-30 UG/ML IS A THERAPEUTIC RANGE. TOXIC CONCENTRATIONS: >150 UG/ML AFTER 4 HOURS OF INGESTION > 50 UG/ML AFTER 12 HOURS OF INGESTION [id number] 00:21:00* Test Item Value Reference Range Interpretation Comments SALICYLATE (test code = MARY) 0.5 mg/dL 2.8-20.0 L [id number] 00:21:00* Test Item Value Reference Range Interpretation Comments ALCOHOL (test code = ALC) <3.0 mg/dL 0.0-3.0 N -- INTERPRETIVE DATA NOTE: POSITIVE SCREENING RESULTS SHOULD BE CONSIDERED PRESUMPTIVE.WHEN COLLECTED FOR MEDICAL PURPOSES ONLY. SPECIMEN WILL NOTBE COLLECTED BY CHAIN OF CUSTODY.IF A CONFIRMATION OF POSITIVE RESULTS IS DESIRED, ACONFIRMATION TEST MUST BE REQUESTED BY THE PHYSICIAN AT ANADDITIONAL CHARGE TO THE PATIENT. URINALYSIS [id number] 21:42:00* Test Item Value Reference Range Interpretation Comments UA COLOR (test code = COLU) DARK YELLOW YELLOW A UA APPEARANCE (test code = APPU) SLIGHTLY CLOUDY CLEAR A UA GLUCOSE DIPSTICK (test code = DGLUU) norm mg/dL NEGATIVE UA BILIRUBIN DIPSTICK (test code = BILU) NEGATIVE mg/dL NEGATIVE UA KETONE DIPSTICK (test code = KETU) neg mg/dL NEGATIVE UA SPECIFIC GRAVITY (test code = SGU) 1.030 1.001-1.035 UA BLOOD DIPSTICK (test code = CARLITOS) 250 (4+) Oni/uL NEGATIVE A UA PH DIPSTICK (test code = GREER) 5.0 5.0-8.0 UA PROTEIN DIPSTICK (test code = PROU) 30 (1+) mg/dL Neg-15 A UA UROBILINIOGEN DIPSTICK (test code = URO) 1 mg/dL 0.0-0.2 A UA NITRITE DIPSTICK (test code = ERROL) NEGATIVE NEGATIVE UA LEUKOCYTE ESTERASE DIPSTICK (test code = LEUU) 25 Paulo/uL (Tra ce) uL NEGATIVE A UA WBC (test code = WBCU) 3-5 per HPF 0-5 UA RBC (test code = RBCU) TNTC per HPF 0-5 A UA EPITHELIAL CELLS (test code = EPIU) Few (2-5/hpf) per HPF Few UA BACTERIA (test code = BACU) FEW per HPF NONE Urine Source? Clean CatchDRUGS OF ABUSE SCREEN [id number] 21:42:00* Test Item Value Reference Range Interpretation Comments URN COCAINE (test code = COCAURN) NEGATIVE NEGATIVE URN CANNABINOIDS (test code = CANNABURN) NEGATIVE NEGATIVE URN AMPHETAMINE (test code = AMPHETURN) NEGATIVE NEGATIVE URN BARBITURATE (test code = BARBITURN) NEGATIVE NEGATIVE URN BENZODIAZEPINE (test code = BENZOURN) NEGATIVE NEGATIVE URN OPIATES (test code = OPIATURN) NEGATIVE NEGATIVE URN PHENCYCLIDINE (PCP) (test code = PHENCURN) NEGATIVE NEGATIV E Urine Source? Clean CatchURINALYSIS [id number] 21:37:00* Test Item Value Reference Range Interpretation Comments UA COLOR (test code = COLU) DARK YELLOW YELLOW A UA APPEARANCE (test code = APPU) SLIGHTLY CLOUDY CLEAR A UA GLUCOSE DIPSTICK (test code = DGLUU) norm mg/dL NEGATIVE UA BILIRUBIN DIPSTICK (test code = BILU) NEGATIVE mg/dL NEGATIVE UA KETONE DIPSTICK (test code = KETU) neg mg/dL NEGATIVE UA SPECIFIC GRAVITY (test code = SGU) 1.030 1.001-1.035 UA BLOOD DIPSTICK (test code = CARLITOS) 250 (4+) Oni/uL NEGATIVE A UA PH DIPSTICK (test code = GREER) 5.0 5.0-8.0 UA PROTEIN DIPSTICK (test code = PROU) 30 (1+) mg/dL Neg-15 A UA UROBILINIOGEN DIPSTICK (test code = URO) 1 mg/dL 0.0-0.2 A UA NITRITE DIPSTICK (test code = ERROL) NEGATIVE NEGATIVE UA LEUKOCYTE ESTERASE DIPSTICK (test code = LEUU) 25 Paulo/uL (Tra ce) uL NEGATIVE A UA WBC (test code = WBCU) 3-5 per HPF 0-5 UA RBC (test code = RBCU) TNTC per HPF 0-5 A UA EPITHELIAL CELLS (test code = EPIU) Few (2-5/hpf) per HPF Few UA BACTERIA (test code = BACU) FEW per HPF NONE Urine Source? Clean CatchDRUGS OF ABUSE SCREEN [id number] 21:37:00* Test Item Value Reference Range Interpretation Comments URN COCAINE (test code = COCAURN) NEGATIVE URN CANNABINOIDS (test code = CANNABURN) NEGATIVE URN AMPHETAMINE (test code = AMPHETURN) NEGATIVE URN BARBITURATE (test code = BARBITURN) NEGATIVE URN BENZODIAZEPINE (test code = BENZOURN) NEGATIVE URN OPIATES (test code = OPIATURN) NEGATIVE URN PHENCYCLIDINE (PCP) (test code = PHENCURN) NEGATIV E Urine Source? Clean CatchCOMPREHENSIVE METABOLIC [id number] 21:00:00* Test Item Value Reference Range Interpretation Comments SODIUM (test code = NA) 140 mmol/L 136-145 N POTASSIUM (test code = K) 2.9 mmol/L 3.5-5.1 L Re sults called to SHARAN Bernstein V.[id number].[id number] 11/27/18 2100Critical results verified and read back by Nurse? Y CHLORIDE (test code = CL) 103 mmol/L 101-109 N CARBON DIOXIDE (test code = CO2) 25.9 mmol/L 21-32 N ANION GAP (test code = GAP) 14 mmol/L 10-20 N GLUCOSE (test code = GLU) 139 mg/dL 74-106 H BLOOD UREA NITROGEN (test code = BUN) 15 mg/dL 3-21 N CREATININE (test code = CREAT) 0.98 mg/dL 0.55-1.3 N BUN/CREATININE RATIO (test code = BUN/CREA) 15.3 10-20 N TOTAL PROTEIN (test code = PROT) 7.8 g/dL 6.5-8.4 N ALBUMIN (test code = ALB) 4.1 g/dL 3.4-4.8 N GLOBULIN (test code = GLOB) 3.7 G/DL 1-10 N ALBUMIN/GLOBULIN RATIO (test code = A/G) 1.11 RATIO 0.75-1.50 N CALCIUM (test code = CA) 8.3 mg/dL 8.4-10.2 L BILIRUBIN TOTAL (test code = BILT) 0.60 mg/dL 0.0-1.0 N SGOT/AST (test code = AST) 16 U/L 6-32 N SGPT/ALT (test code = ALT) 28 U/L 12-78 N N ote: Change in REFERENCE RANGE due to new reagent method. ALKALINE PHOSPHATASE TOTAL (test code = ALKP) 145 U/L 38-126 H CBC W/AUTO [id number] 20:44:00* Test Item Value Reference Range Interpretation Comments WHITE BLOOD CELL (test code = WBC) 12.6 K/mm3 4.5-12.5 H RED BLOOD CELL (test code = RBC) 5.33 mill/mm3 4.0-5.8 N HEMOGLOBIN (test code = HGB) 14.6 gram/dL 13.0-17.5 N HEMATOCRIT (test code = HCT) 44.7 % 42.0-52.0 N MEAN CELL VOLUME (test code = MCV) 83.9 fL 80-98 N MEAN CELL HGB (test code = MCH) 27.4 picogram 27.0-33.0 N MEAN CELL HGB CONCETRATION (test code = MCHC) 32.7 gram/dL 33.0-36. 0 L RED CELL DISTRIBUTION WIDTH (test code = RDW) 12.1 % 11.6-16. 2 N RED CELL DISTRIBUTION WIDTH SD (test code = RDW-SD) 37.2 fL 37 .0-51.0 N PLATELET COUNT (test code = PLT) 264 K/mm3 150-450 N MEAN PLATELET VOLUME (test code = MPV) 10.4 fL 6.7-11.0 N NEUTROPHIL % (test code = NT%) 45.9 % 39.0-69.0 N LYMPHOCYTE % (test code = LY%) 43.5 % 25.0-55.0 N MONOCYTE % (test code = MO%) 8.4 % 0.0-10.0 N EOSINOPHIL % (test code = EO%) 1.6 % 0.0-5.0 N BASOPHIL % (test code = BA%) 0.4 % 0.0-1.0 N NEUTROPHIL # (test code = NT#) 5.78 K/mm3 1.8-7.7 N LYMPHOCYTE # (test code = LY#) 5.49 K/mm3 1.0-5.0 H MONOCYTE # (test code = MO#) 1.06 K/mm3 0-0.8 H EOSINOPHIL # (test code = EO#) 0.20 K/mm3 0.0-0.5 N BASOPHIL # (test code = BA#) 0.05 K/mm3 0.0-0.2 N MANUAL DIFF REQUIRED (test code = MDIFF) NO - CT ABD PELVIS [id number] 04:30:00 Name: MELIDA LOVE [facility] : 2000 Age/S: 18 / M [address] [facility] Unit #: [id number] Loc: [place] [address] Phys: Keon Eduardo MD Acct: [id number] Dis Date: Status: REG ER PHONE #: [phone] Exam Date: 08/14/2018414 FAX #: [phone] Reason: LLQ pain, V/D, fever EXAMS: CPT CODE: [id number] CT ABD PELVIS W/CONT 28722 EXAM: - CT ABD PELVIS W/CONT INDICATION: 18 years - old Male with LLQ pain, V/D, fever TECHNIQUE: Contrast - IV contrast was given. No oral contrast was given Portal venous phase - abdomen and pelvis Delayed phase imaging was obtained through the abdomen and pelvis Reconstructions - coronal and sagittal planes Automated exposure reduction (Auto mA/Smart mA) was utilized in compliance with ACR [employer] COMPARISON: 05/03/2018 FINDINGS: Statements: None. Thoracic: Included images of the lower chest demonstrate no abnormalities. Hepatobiliary: The liver is normal without focal lesion. The gallbladder is normal. No biliary dilation. Pancreas: Normal. Spleen: Normal. Adrenals: Normal. Genitourinary: The kidneys are normal. No evidence of hydronephrosis. Evaluation of the bladder is limited, but no obvious bladder abnormality is present. Gastrointestinal: No bowel obstruction or perienteric inflammation. The appendix is normal. Vascular: No evidence of aneurysm or dissection. Lymphatics: No enlarged lymph nodes by CT size c riteria. Bones/Soft Tissues: No acute osseous findings. No ventral hernias. Peritoneum/Other: No extraluminal air. No extraluminal f luid. PAGE 1 Signed Report (CONTINUED) Name: MELIDA LOVE [facility] : 2000 Age/S: 18 / M [address] [facility] Unit #: [id number] Loc: [place]aire[place] [address] Phy s: Keon Eduardo MD Acct: [id number] Dis Date: Status: REG ER PHONE #: [phone] Exam Date: 08/14/20185 FAX #: [phone] Reason: LLQ pain, V/D, fever EXAMS: CPT CODE: [id number] CT ABD PELVIS W/CONT 75979 <Continued> IMPRESSION: 1. Normal appendix. No acute inflammatory process. No other acute abnormalities. at 0430 Reporte d and signed by: Trell Martinez MD CC: Raymundo Tam MD; Keon Eduardo MD Technologist:Saji Alanis RT(R) CTDI: DLP: Trnscb Date/Time: 08/14/2018 (0430) [email or web address] [email or web address] Orig Print D/T: S: 08/14/2018 (043) CTDI: DLP: PAGE 2 Signed Report COMPREHENSIVE METABOLIC [id number] 03:32:00* Test Item Value Reference Range Interpretation Comments SODIUM (test code = NA) 140 mmol/L 135-148 N POTASSIUM (test code = K) 3.4 mmol/L 3.5-5.1 L CHLORIDE (test code = CL) 104 mmol/L 101-109 N CARBON DIOXIDE (test code = CO2) 25.3 mmol/L 21-32 N ANION GAP (test code = GAP) 14 mmol/L 10-20 N GLUCOSE (test code = GLU) 111 mg/dL 74-106 H BLOOD UREA NITROGEN (test code = BUN) 9 mg/dL 3-21 N CREATININE (test code = CREAT) 1.04 mg/dL 0.55-1.3 N BUN/CREATININE RATIO (test code = BUN/CREA) 8.7 10-20 L TOTAL PROTEIN (test code = PROT) 7.2 g/dL 6.5-8.4 N ALBUMIN (test code = ALB) 3.8 g/dL 3.4-4.8 N GLOBULIN (test code = GLOB) 3.4 G/DL 1-10 N ALBUMIN/GLOBULIN RATIO (test code = A/G) 1.1 RATIO 0.75-1.50 N CALCIUM (test code = CA) 8.4 mg/dL 8.4-10.2 N BILIRUBIN TOTAL (test code = BILT) 0.40 mg/dL 0.0-1.0 N SGOT/AST (test code = AST) 23 U/L 6-32 N SGPT/ALT (test code = ALT) 36 U/L 12-78 N N ote: Change in REFERENCE RANGE due to new reagent method. ALKALINE PHOSPHATASE TOTAL (test code = ALKP) 133 U/L 38-126 H [id number] 03:32:00* Test Item Value Reference Range Interpretation Comments LIPASE (test code = LIP) 116 U/L 128-270 L [id number] 03:32:00* Test Item Value Reference Range Interpretation Comments MAGNESIUM (test code = MAG) 1.5 mg/dL 1.6-2.3 L COMPREHENSIVE METABOLIC [id number] 03:26:00* Test Item Value Reference Range Interpretation Comments SODIUM (test code = NA) 140 mmol/L 135-148 N POTASSIUM (test code = K) 3.4 mmol/L 3.5-5.1 L CHLORIDE (test code = CL) 104 mmol/L 101-109 N CARBON DIOXIDE (test code = CO2) 25.3 mmol/L 21-32 N ANION GAP (test code = GAP) 14 mmol/L 10-20 N GLUCOSE (test code = GLU) 111 mg/dL 74-106 H BLOOD UREA NITROGEN (test code = BUN) 9 mg/dL 3-21 N CREATININE (test code = CREAT) 1.04 mg/dL 0.55-1.3 N BUN/CREATININE RATIO (test code = BUN/CREA) 8.7 10-20 L TOTAL PROTEIN (test code = PROT) gram/dL 6.4-8.2 ALBUMIN (test code = ALB) g/dL 3.4-5.0 GLOBULIN (test code = GLOB) g/dL 2.7-4.2 ALBUMIN/GLOBULIN RATIO (test code = A/G) 0.75-1.50 CALCIUM (test code = CA) 8.4 mg/dL 8.4-10.2 N BILIRUBIN TOTAL (test code = BILT) mg/dL 0.2-1.2 SGOT/AST (test code = AST) IUnit/L 15-37 SGPT/ALT (test code = ALT) U/L 10-69 ALKALINE PHOSPHATASE TOTAL (test code = ALKP) IUnit/L 65-260 [id number] 03:26:00* Test Item Value Reference Range Interpretation Comments LIPASE (test code = LIP) Unit/L 144-286 [id number] 03:26:00* Test Item Value Reference Range Interpretation Comments MAGNESIUM (test code = MAG) mg/dL 1.8-2.4 URINALYSIS [id number] 03:22:00* Test Item Value Reference Range Interpretation Comments UA COLOR (test code = COLU) DARK YELLOW YELLOW A UA APPEARANCE (test code = APPU) CLEAR CLEAR UA GLUCOSE DIPSTICK (test code = DGLUU) NORMAL mg/dL NEGATIVE UA BILIRUBIN DIPSTICK (test code = BILU) NEGATIVE mg/dL NEGATIVE UA KETONE DIPSTICK (test code = KETU) neg mg/dL NEGATIVE UA SPECIFIC GRAVITY (test code = SGU) 1.025 1.001-1.035 UA BLOOD DIPSTICK (test code = CARLITOS) neg Oni/uL NEGATIVE UA PH DIPSTICK (test code = GREER) 6.0 5.0-8.0 UA PROTEIN DIPSTICK (test code = PROU) 30 (1+) mg/dL Neg-15 A UA UROBILINIOGEN DIPSTICK (test code = URO) 1 mg/dL 0.0-0.2 A UA NITRITE DIPSTICK (test code = ERROL) NEGATIVE NEGATIVE UA LEUKOCYTE ESTERASE DIPSTICK (test code = LEUU) NEGATIVE uL NEGA TIVE UA WBC (test code = WBCU) 0-5 per HPF 0-5 IN SOME URINARY TRACT INFECTIONS THERE MAY NOT BE ENOUGHWBCs IN THE URINE TO TRIGGER AN AUTOMATIC (REFLEX) URINECULTURE. A SEPERATE ORDER FOR URINE CULTURE IS RECOMMENDEDIF THERE IS STRONG SUPPORT FOR A URINARY TRACT INFECTIONCLINICALLY. UA RBC (test code = RBCU) 0-2 per HPF 0-5 UA EPITHELIAL CELLS (test code = EPIU) Few (2-5/hpf) per HPF Few UA BACTERIA (test code = BACU) FEW per HPF NONE UA MUCUS (test code = MUCU) MANY per LPF NONE-FEW A URINALYSIS W/O [id number] 03:22:00* Test Item Value Reference Range Interpretation Comments UA MICROSCOPIC NEEDED? (test code = UAMICRO) YES CBC W/AUTO [id number] 03:16:00* Test Item Value Reference Range Interpretation Comments WHITE BLOOD CELL (test code = WBC) 7.3 K/mm3 4.5-12.5 N RED BLOOD CELL (test code = RBC) 4.94 mill/mm3 4.0-5.8 N HEMOGLOBIN (test code = HGB) 13.8 gram/dL 13.0-17.5 N HEMATOCRIT (test code = HCT) 41.7 % 42.0-52.0 L MEAN CELL VOLUME (test code = MCV) 84.4 fL 80-98 N MEAN CELL HGB (test code = MCH) 27.9 picogram 27.0-33.0 N MEAN CELL HGB CONCETRATION (test code = MCHC) 33.1 gram/dL 33.0-36. 0 N RED CELL DISTRIBUTION WIDTH (test code = RDW) 12.5 % 11.6-16. 2 N RED CELL DISTRIBUTION WIDTH SD (test code = RDW-SD) 37.7 fL 39 .2-49.5 L PLATELET COUNT (test code = PLT) 170 K/mm3 150-450 N MEAN PLATELET VOLUME (test code = MPV) 10.7 fL 6.7-11.0 N NEUTROPHIL % (test code = NT%) 70.4 % 39.0-69.0 H LYMPHOCYTE % (test code = LY%) 13.8 % 25.0-55.0 L MONOCYTE % (test code = MO%) 14.9 % 0.0-10.0 H EOSINOPHIL % (test code = EO%) 0.8 % 0.0-5.0 N BASOPHIL % (test code = BA%) 0.1 % 0.0-1.0 N NEUTROPHIL # (test code = NT#) 5.14 K/mm3 1.8-7.7 N LYMPHOCYTE # (test code = LY#) 1.01 K/mm3 1.0-5.0 N MONOCYTE # (test code = MO#) 1.09 K/mm3 0-0.8 H EOSINOPHIL # (test code = EO#) 0.06 K/mm3 0.0-0.5 N BASOPHIL # (test code = BA#) 0.01 K/mm3 0.0-0.2 N MANUAL DIFF REQUIRED (test code = MDIFF) NO URINALYSIS [id number] 03:16:00* Test Item Value Reference Range Interpretation Comments UA COLOR (test code = COLU) DARK YELLOW YELLOW A UA APPEARANCE (test code = APPU) CLEAR CLEAR UA GLUCOSE DIPSTICK (test code = DGLUU) NORMAL mg/dL NEGATIVE UA BILIRUBIN DIPSTICK (test code = BILU) NEGATIVE mg/dL NEGATIVE UA KETONE DIPSTICK (test code = KETU) neg mg/dL NEGATIVE UA SPECIFIC GRAVITY (test code = SGU) 1.025 1.001-1.035 UA BLOOD DIPSTICK (test code = CARLITOS) neg Oni/uL NEGATIVE UA PH DIPSTICK (test code = GREER) 6.0 5.0-8.0 UA PROTEIN DIPSTICK (test code = PROU) 30 (1+) mg/dL Neg-15 A UA UROBILINIOGEN DIPSTICK (test code = URO) 1 mg/dL 0.0-0.2 A UA NITRITE DIPSTICK (test code = ERROL) NEGATIVE NEGATIVE UA LEUKOCYTE ESTERASE DIPSTICK (test code = LEUU) NEGATIVE uL NEGA TIVE UA WBC (test code = WBCU) per HPF 0-5 URINALYSIS W/O [id number] 03:16:00* Test Item Value Reference Range Interpretation Comments UA MICROSCOPIC NEEDED? (test code = UAMICRO) YES URINALYSIS [id number] 03:16:00* Test Item Value Reference Range Interpretation Comments UA COLOR (test code = COLU) DARK YELLOW YELLOW A UA APPEARANCE (test code = APPU) CLEAR CLEAR UA GLUCOSE DIPSTICK (test code = DGLUU) NORMAL mg/dL NEGATIVE UA BILIRUBIN DIPSTICK (test code = BILU) NEGATIVE mg/dL NEGATIVE UA KETONE DIPSTICK (test code = KETU) neg mg/dL NEGATIVE UA SPECIFIC GRAVITY (test code = SGU) 1.025 1.001-1.035 UA BLOOD DIPSTICK (test code = CARLITOS) neg Oni/uL NEGATIVE UA PH DIPSTICK (test code = GREER) 6.0 5.0-8.0 UA PROTEIN DIPSTICK (test code = PROU) 30 (1+) mg/dL Neg-15 A UA UROBILINIOGEN DIPSTICK (test code = URO) 1 mg/dL 0.0-0.2 A UA NITRITE DIPSTICK (test code = ERROL) NEGATIVE NEGATIVE UA LEUKOCYTE ESTERASE DIPSTICK (test code = LEUU) NEGATIVE uL NEGA TIVE UA WBC (test code = WBCU) per HPF 0-5 URINALYSIS W/O [id number] 03:16:00* Test Item Value Reference Range Interpretation Comments UA MICROSCOPIC NEEDED? (test code = UAMICRO) YES
[2020-02-29] MEDS ORDERED: KETOROLAC TROMETHAMINE 30 MG/ML VIAL IV STA (17:48)
--- NOTE | 2020-02-29 17:51 | Diagnostic Imaging Report ---
EXAM: CT Abdomen and Pelvis WITH contrast INDICATION: Right-sided abdominal pain concerning for appendicitis versus cholecystitis. COMPARISON: None. TECHNIQUE: Abdomen and pelvis were scanned utilizing a multidetector helical scanner from the lung base to the pubic symphysis after administration of IV contrast. Coronal and sagittal reformations were obtained. Routine protocol was performed. Scan was performed when during portal venous phase. IV CONTRAST: 100 mL of Isovue 370 ORAL CONTRAST: None COMPLICATIONS: None RADIATION DOSE: Total DLP: 636.70 mGy*cm Estimated effective dose: (DLP x 0.015 x size factor) mSv CTDIvol has been reviewed. It is below the limits set by the Radiation Protocol Committee (RPC). Dose modulation, iterative reconstruction, and/or weight based adjustment of the mA/kV was utilized to reduce the radiation dose to as low as reasonably achievable. FINDINGS: LINES and TUBES: None. LOWER THORAX: Unremarkable HEPATOBILIARY: No focal hepatic lesions. No biliary ductal dilation. GALLBLADDER: No radio-opaque stones or sludge. No wall thickening. SPLEEN: No splenomegaly. PANCREAS: No focal masses or ductal dilatation. ADRENALS: No adrenal nodules KIDNEYS/URETERS: Kidneys enhance symmetrically. No hydronephrosis. No cystic or solid mass lesions. No stones. GI TRACT: There is mild asymmetric gastric wall thickening along the greater curvature of the fundus. No abnormal distention, wall thickening, or evidence of bowel obstruction. Appendix is normal. PELVIC ORGANS/BLADDER: Unremarkable. LYMPH NODES: No lymphadenopathy. VESSELS: Unremarkable. PERITONEUM / RETROPERITONEUM: No free air or fluid. BONES: Unremarkable. SOFT TISSUES: Unremarkable. IMPRESSION: 1. Mild asymmetric gastric wall thickening along the greater curvature of the fundus. This may be related to gastric underdistention or mild gastritis. 2. No evidence of cholecystitis or appendicitis. Signed by: Abdias Whiting MD on 02/29/2020 5:48 PM
[2020-02-29] MEDS ORDERED: OMEPRAZOLE40 MG PO (17:58)
== END 2020-02-29 18:28 | disposition home or self-care (01) ==
LOC: ER 16:00
DX: K29.70 Gastritis, unspecified, without bleeding (principal); R10.13 Epigastric pain; R11.2 Nausea with vomiting, unspecified; Z87.891 Personal history of nicotine dependence
CPT/HCPCS: 36415; 74177; 80053; 81001; 85025; 99284; J1885; J2270; J2405; J7030; Q9967

== ENCOUNTER 2020-03-07 18:19 | Observation (INO) | payer SELFPAY ==
[~2020-03-07] VITALS: Ht 170.2 cm; Wt 71.3 kg
[~2020-03-07 18:19] MED LIST: OMEPRAZOLE40 MG PO
[2020-03-07] MEDS ORDERED: PANTOPRAZOLE 40 MG 10ML VIAL IV STA (18:24)
[2020-03-07] MEDS ORDERED: ONDANSETRON HCL INJ 2MG/ML 2ML 2 MG/ML VIAL IV STA (18:24)
[2020-03-07] MEDS ORDERED: BELLADONNA ALK/PHENOBARBITAL 5 ML UDC PO ONE (18:30)
[2020-03-07] MEDS ORDERED: LIDOCAINE VISC 2% SOLN 15 ML UDC PO ONE (18:30)
[2020-03-07] MEDS ORDERED: MAGNESIUM/ALUMINUM/SIMETHICONE 30 ML UDC PO ONE (18:30)
[2020-03-07 18:42] LABS: BASOPHILS # (AUTO) 0.1 (0.0-0.1); BASOPHILS % 0.7 % (0.0-1.0); EOSINOPHILS # (AUTO) 0.1 (0.0-0.4); EOSINOPHILS % 0.6 % (0.0-6.0); HEMATOCRIT 45.7 % (38.2-49.6); HEMOGLOBIN 15.4 g/dL (14.0-18.0); LYMPHOCYTES # (AUTO) 2.5 (1.0-3.2); LYMPHOCYTES % 28.3 % (18.0-39.1); MEAN CORPUSCULAR HEMOGLOBIN 27.3 pg (28-32); MEAN CORPUSCULAR HGB CONC 33.7 g/dL (31-35); MEAN CORPUSCULAR VOLUME 80.9 fL (81-99); MONOCYTES # (AUTO) 0.9 (0.2-0.8); MONOCYTES % 9.8 % (4.4-11.3); NEUTROPHILS # (AUTO) 5.2 (2.1-6.9); NEUTROPHILS % 60.1 % (38.7-80.0); PLATELET COUNT 222 x10e3/uL (140-360); RED BLOOD COUNT 5.65 x10e6/uL (4.3-5.7); RED CELL DISTRIBUTION WIDTH 11.6 % (11.7-14.4)
--- NOTE | 2020-03-07 18:46 | Emergency Department Note ---
History of Present Illnes History of Present Illness Chief Complaint: Abdominal Complaints History of Present Illness This is a 19 year old male N/V/D ONGOING PROBLEM X SEVERAL MONTHS. PT STATES TAKING OMEPROZOLE. PT HAS MADE DIET CHANGES. 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 . Historian: Patient Arrival Mode: Car Onset (how long ago): month(s) (6) Location: upper abd Quality: pain, n/v/d Radiation: Reports non-radiation Severity: moderate Onset quality: gradual Duration (how long): month(s) (6) Timing of current episode: intermittent Progression: waxing and waning Chronicity: recurrent Context: Denies recent illness, Denies recent surgery, Denies trauma/injury Relieving factors: none Exacerbating factors: other (eating) Past Medical/Family History Physician Review I have reviewed the patient's past medical and family history. Any updates have been documented here. Past Medical History Recent Fever: No Clinical Suspicion of Infectio: No New/Unexplained Change in Ment: No Past Medical History: GERD Past Surgical History: None Social History Smoking Cessation: Never Smoker Counseling Performed: No Alcohol Use: None Any Illegal Drug Use: No Other Any Pre-Existing Lines (PICC,: No Review of Systems Review of Systems Constitutional: Reports no symptoms EENTM: Reports no symptoms Cardiovascular: Reports no symptoms Respiratory: Reports no symptoms Gastrointestinal: Reports as per HPI Genitourinary: Reports no symptoms Musculoskeletal: Reports no symptoms Integumentary: Reports no symptoms Neurological: Reports no symptoms Psychological: Reports no symptoms Endocrine: Reports no symptoms Hematological/Lymphatic: Reports no symptoms Physical Exam Related Data Allergies: Coded Allergies: No Known Allergies (Unverified , 02/29/20) Triage Vital Signs Vital Signs Date Time Temp Pulse Resp B/P (MAP) Pulse Ox O2 Delivery O2 Flow Rate FiO2 03/07/20 18:25 98.2 63 16 129/92 100 Room Air Vital signs reviewed: Yes Physical Exam CONSTITUTIONAL Constitutional: Present well-developed, Present well-nourished; Absent distressed HENT HENT: Present normocephalic, Present atraumatic, Present oropharynx clear/moist, Present nose normal HENT L/R: Present left ext ear normal, Present right ext ear normal EYES Eyes: Reports PERRL, Reports conjunctivae normal NECK Neck: Present ROM normal PULMONARY Pulmonary: Present effort normal, Present breath sounds normal CARDIOVASCULAR Cardiovascular: Present regular rhythm, Present heart sounds normal, Present capillary refill normal, Present normal rate GASTROINTESTINAL Abdominal: Present soft, Present bowel sounds normal, Present tender (moderate epigastric tenerness, no ruq tendeerness); Absent distension, Absent guarding, Absent mass, Absent rebound, Absent left CVA tenderness, Absent right CVA tenderness GENITOURINARY Genitourinary: Present exam deferred SKIN Skin: Present warm, Present dry MUSCULOSKELETAL Musculoskeletal: Present ROM normal NEUROLOGICAL Neurological: Present alert, Present oriented x 3, Present no gross motor or sensory deficits PSYCHOLOGICAL Psychological: Present mood/affect normal, Present judgement normal Results Laboratory Laboratory Laboratory Tests Test 03/07/20 18:33 White Blood Count 8.69 x10e3/uL (4.8-10.8) Red Blood Count 5.65 x10e6/uL (4.3-5.7) Hemoglobin 15.4 g/dL (14.0-18.0) Hematocrit 45.7 % (38.2-49.6) Mean Corpuscular Volume 80.9 fL (81-99) Mean Corpuscular Hemoglobin 27.3 pg (28-32) Mean Corpuscular Hemoglobin Concent 33.7 g/dL (31-35) Red Cell Distribution Width 11.6 % (11.7-14.4) Platelet Count 222 x10e3/uL (140-360) Neutrophils (%) (Auto) 60.1 % (38.7-80.0) Lymphocytes (%) (Auto) 28.3 % (18.0-39.1) Monocytes (%) (Auto) 9.8 % (4.4-11.3) Eosinophils (%) (Auto) 0.6 % (0.0-6.0) Basophils (%) (Auto) 0.7 % (0.0-1.0) Neutrophils # (Auto) 5.2 (2.1-6.9) Lymphocytes # (Auto) 2.5 (1.0-3.2) Monocytes # (Auto) 0.9 (0.2-0.8) Eosinophils # (Auto) 0.1 (0.0-0.4) Basophils # (Auto) 0.1 (0.0-0.1) Absolute Immature Granulocyte (auto 0.04 x10e3/uL (0-0.1) Sodium Level 139 mmol/L (136-145) Potassium Level 3.6 mmol/L (3.5-5.1) Chloride Level 105 mmol/L (98-107) Carbon Dioxide Level 17 mmol/L (22-29) Anion Gap 20.6 mmol/L (8-16) Blood Urea Nitrogen 19 mg/dL (7-26) Creatinine 1.16 mg/dL (0.72-1.25) Estimat Glomerular Filtration Rate > 60 ML/MIN (60-) BUN/Creatinine Ratio 16 (6-25) Glucose Level 105 mg/dL (74-118) Calcium Level 10.1 mg/dL (8.4-10.2) Total Bilirubin 3.9 mg/dL (0.2-1.2) Aspartate Amino Transf (AST/SGOT) 20 IU/L (5-34) Alanine Aminotransferase (ALT/SGPT) 21 IU/L (0-55) Alkaline Phosphatase 141 IU/L (40-150) Total Protein 8.4 g/dL (6.5-8.1) Albumin 5.1 g/dL (3.5-5.0) Globulin 3.3 g/dL (2.3-3.5) Albumin/Globulin Ratio 1.5 (0.8-2.0) Amylase Level 51 U/L (25-125) Lipase 26 U/L (8-78) Laboratory Tests Test 03/07/20 18:33 Lab results reviewed: Yes Assessment & Plan Medical Decision Making MDM pt with 6 months of intermittent upper abd pain with n/v/d cbc, cmp, amylase, lipase ordered to eval for pancreatitis, elevated lft's, electrolyte abnormality, leukocytosis protonix 40 mg iv ordered zofran 4 mg iv gi cocktail po ordered i spoke with dr herrera and left a message for dr barakat, place pt in obs will get mrcp in am Assessment & Plan Final Impression: (1) Gastritis (2) Hyperbilirubinemia Depart Disposition: ADMITTED Last Vital Signs Date Time Temp Pulse Resp B/P (MAP) Pulse Ox O2 Delivery O2 Flow Rate FiO2 03/07/20 18:25 98.2 63 16 129/92 100 Room Air Home Meds Active Scripts Omeprazole (OMEPRAZOLE) 40 Mg Capsule., 40 MG PO DAILY, #28 Prov:EVA WORLEY, DO 02/29/20 Medications in the ED Pantoprazole Sodium 40 mg NOW STAT IV ; Start 03/07/20 at 18:24; Stop 03/07/20 at 18:25; Status UNV Lidocaine HCl 20 ml ONCE ONCE PO ; Start 03/07/20 at 18:30; Stop 03/07/20 at 18:31; Status UNV Magnesium Aluminum Silicate 30 ml ONCE ONCE PO ; Start 03/07/20 at 18:30; Stop 03/07/20 at 18:31; Status UNV Belladonna Alkaloids/ Phenobarbital 5 ml ONCE ONCE PO ; Start 03/07/20 at 18:30; Stop 03/07/20 at 18:31; Status UNV Ondansetron HCl 4 mg NOW STAT IV ; Start 03/07/20 at 18:24; Stop 03/07/20 at 18:25; Status UNV HARDEEP FERRARI MD Mar 07, 2020 18:45
--- OUTSIDE RECORDS SUMMARY | 2020-03-07 18:49 | XMS REPORT | Continuity of Care Document ---
Author Author [facility] t Organization [facility] Address [facility] [place] [address] Phone Unavailable Care Team Providers Care Equipment Services Associate Name Role Phone NO, PCP PCP Unavailable Osvaldo WORLEY Attphyosvaldo Unavailable Payers Payer Name Policy Type Policy Number Effective Date Expiration Date Osvaldo maurice [facility] [id number] 2008 00:00:00 [facility] Problems Condition Name Condition Details Condition Category Status Onset Date Resolution Date Last Treatment Date Treating Clinician Comments Source Problem Condition Active [facility] Allergies, Adverse Reactions, Alerts Allergy Name Allergy Type Status Severity Reaction(s) Onset Date Inacti ve Date Treating Clinician Comments Source No Known Allergies DA Active U 2016-12-16 00:00:00 [facility] Social History Social Habit Start Date Stop Date Quantity Comments Source Sex Assigned At 2000 00:00:00 2000 00:00:00 Male [facility] Medications Ordered Medication Name Filled Medication Name Start Date Stop Da te Current Medication? Ordering Clinician Indication Dosage Frequency Signature (SIG) Comments Components Source Omeprazole Omeprazole 2020-02-29 17:58:00 Yes 40 Sabina ly [facility] Vital Signs Vital Name Observation Time Observation Value Comments Source Weight 2020-02-29 15:53:00 180 [lb_av] [facility] BMI (Body Mass Index) 2020-02-29 15:53:00 28.2 kg/m2 [facility] Procedures Procedure Date / Time Performed Performing Clinician Rizwana salamanca Computed tomography of abdomen and pelvis with contrast 00:00:00 [facility] Plan of Care Planned Activity Planned Date Details Comments Source Instructions [place] Diet - Adult [facility] Instructions Heartburn [facility] Encounters Start Date/Time End Date/Time Encounter Type Admission Type Attendi [facility] Facility Care Department Encounter ID Source 2020-02-29 16:00:00 2020-02-29 18:28:00 Departed Emergency Room 1 EVA WORLEY [facility] [id number] I [facility] Results Test Description Test Time Test Comments Results Result Comments Source CT ABDOMEN/PELVIS W 2020-02-29 17:41:00 [facility] [address] [address] Patient Name: MELIDA LOVE MR #: [id number] : 2000 Age/Sex: 19/M Req #: [id number] Adm Physician: Ordered by: EVA WORLEY DO Report #: [id number] Location: ER Room/Bed: Procedure: [id number] CT/CT ABDOMEN/PELVIS W Exam Date: 02/29/20 Exam Time: 7735 REPORT STATUS: Signed EXAM: CT Abdomen and Pelvis WITH contrast INDICATION: Right-sided abdominal pain concerning for appendicitis versus cholecystitis. COMPARISON: None. TECHNIQUE: Abdomen and pelvis were scanned utilizing a multidetector helical scanner from the lung base to the pubic symphysis after administration of IV contrast. Coronal and sagittal reformations were obtained. Routine protocol was performed. Scan was performed when during portal venous phase. IV CONTRAST: 100 mL of Isovue 370 ORAL CONTRAST: None COMPLICATIONS: None RADIATION DOSE: Total DLP: 636.70 mGy*cm Estimated effective dose: (DLP x 0.015 x size factor) mSv CTDIvol has been reviewed. It is below the limits set by the Radiation Protocol Committee (RPC). Dose modulation, iterative reconstruction, and/or weight based adjustment of the mA/kV was utilized to reduce the radiation dose to as low as reasonably achievable. FINDINGS: LINES and TUBES: None. LOWER THORAX: Unremarkable HEPATOBILIARY: No focal hepatic lesions. No biliary ductal dilation. GALLBLADDER: No radio-opaque stones or sludge. No wall thickening. SPLEEN: No splenomegaly. PANCREAS: No focal masses or ductal dilatation. ADRENALS: No adrenal nodules KIDNEYS/URETERS: Kidneys enhance symmetrically. No hydronephrosis. No cystic or solid mass lesions. No stones. GI TRACT: There is mild asymmetric gastric wall thickening along the greater curvature of the fundus. No abnormal distention, wall thickening, or evidence of bowel obstruction. Appendix is normal. PELVIC ORGANS/BLADDER: Unremarkable. LYMPH NODES: No lymphadenopathy. VESSELS: Unremarkable. PERITONEUM / RETROPERITONEUM: No free air or fluid. BONES: Unremarkable. SOFT TISSUES: Unremarkable. IMPRESSION: 1. Mild asymmetric gastric wall thickening along the greater curvature of the fundus. This may be related to gastric underdistention or mild gastritis. 2. No evidence of cholecystitis or appendicitis. Signed by: Ashwin Reyes MD on 02/29/2020 5:48 PM Dictated By: ASHWIN REYES MD 47 Transcribed By: ANDRES on 02/29/201747 COPY TO: EVA WORLEY, DO Blood leukocytes automated count (number/volume) 2020-02-29 16:03:00 Test Item White Blood Count (test code = 6690-2) 9.51 4.8-10.8 [facility] automated count (number/volume)2020-02-29 16:03:00* Test Item Value Reference Range Interpretation Comments Red Blood Count (test code = 789-8) 5.29 4.3-5.7 [facility] hemoglobin measurement (moles/volume)2020-02-29 16:03:00* Test Item Value Reference Range Interpretation Comments Hemoglobin (test code = 56213-6) 14.3 14.0-18.0 [facility] HospitalAutomated blood hematocrit (volume fraction)2020-02-29 16:03:00* Test Item Value Reference Range Interpretation Comments Hematocrit (test code = 4544-3) 44.0 38.2-49.6 [facility] HospitalAutomated erythrocyte mean corpuscular ojqegx3547-18-27 16:03:00* Test Item Value Reference Range Interpretation Comments Mean Corpuscular Volume (test code = 787-2) 83.2 81-99 [facility] HospitalAutomated erythrocyte mean corpuscular hemoglobin (mass per erythrocyte)2020-02-29 16:03:00* Test Item Value Reference Range Interpretation Comments Mean Corpuscular Hemoglobin (test code = 785-6) 27.0 28-32 [facility] HospitalAutomated erythrocyte mean corpuscular hemoglobin concentration measurement (mass/volume)2020-02-29 16:03:00* Test Item Value Reference Range Interpretation Comments Mean Corpuscular Hemoglobin Concent (test code = 786-4) 32.5 31-35 [facility] HospitalRDW WciXh-Hah3760-61-13 16:03:00* Test Item Value Reference Range Interpretation Comments Red Cell Distribution Width (test code = 86878-5) 11.8 11.7 -14.4 [facility] HospitalAutomated blood platelet count (count/volume)2020-02-29 16:03:00* Test Item Value Reference Range Interpretation Comments Platelet Count (test code = 777-3) 226 140-360 [facility] HospitalAutomated blood segmented neutrophil count as percentage of total mipwauhugg0848-75-04 16:03:00* Test Item Value Reference Range Interpretation Comments Neutrophils (%) (Auto) (test code = 89597-9) 64.0 38.7-80.0 [facility] HospitalAutomated blood lymphocyte count as percentage ot total maynuquihp6886-86-08 16:03:00* Test Item Value Reference Range Interpretation Comments Lymphocytes (%) (Auto) (test code = 736-9) 29.1 18.0-39.1 [facility] HospitalAutomated blood monocyte count as percentage of total vkmrvvebjh8435-95-24 16:03:00* Test Item Value Reference Range Interpretation Comments Monocytes (%) (Auto) (test code = 5905-5) 6.0 4.4-11.3 [facility] HospitalAutomated blood eosinophil count as percentage of total oxehcxwsqr6319-84-72 16:03:00* Test Item Value Reference Range Interpretation Comments Eosinophils (%) (Auto) (test code = 713-8) 0.2 0.0-6.0 [facility] HospitalAutashe [facility] hospitaled blood basophil count as percentage of total qldqinhyoh6150-67-81 16:03:00* Test Item Value Reference Range Interpretation Comments Basophils (%) (Auto) (test code = 706-2) 0.4 0.0-1.0 [facility] HospitalFluoroscopic procedure less than one hour okapdytx6966-09-06 16:03:00* Test Item Value Reference Range Interpretation Comments IM GRANULOCYTES % (test code = IM GRANULOCYTES %) 0.3 0.0- 1.0 [facility] HospitalAutomated blood neutrophil count 2020-02-29 16:03:00* Test Item Value Reference Range Interpretation Comments Neutrophils # (Auto) (test code = 751-8) 6.1 2.1-6.9 [facility] HospitalBlood lymphocytes count (number/volume) 2020-02-29 16:03:00* Test Item Value Reference Range Interpretation Comments Lymphocytes # (Auto) (test code = 36107-5) 2.8 1.0-3.2 [facility] HospitalBlood monocytes automated count (number/volume)2020-02-29 16:03:00* Test Item Value Reference Range Interpretation Comments Monocytes # (Auto) (test code = 742-7) 0.6 0.2-0.8 [facility] HospitalAutomated blood eosinophil count 2020-02-29 16:03:00* Test Item Value Reference Range Interpretation Comments Eosinophils # (Auto) (test code = 711-2) 0.0 0.0-0.4 [facility] HospitalAutomated blood basophil count (count/volume)2020-02-29 16:03:00* Test Item Value Reference Range Interpretation Comments Basophils # (Auto) (test code = 704-7) 0.0 0.0-0.1 [facility] HospitalFluoroscopic procedure less than one hour qmjxfcqv2424-30-66 16:03:00* Test Item Value Reference Range Interpretation Comments Absolute Immature Granulocyte (auto (rafa t code = Absolute Immature Granulocyte (auto) 0.03 0-0.1 [facility] plasma sodium measurement (moles/volume)2020-02-29 16:03:00* Test Item Value Reference Range Interpretation Comments Sodium Level (test code = 2951-2) 140 136-145 [facility] or plasma potassium measurement (moles/volume)2020-02-29 16:03:00* Test Item Value Reference Range Interpretation Comments Potassium Level (test code = 2823-3) 4.0 3.5-5.1 [facility] or plasma chloride measurement (moles/volume)2020-02-29 16:03:00* Test Item Value Reference Range Interpretation Comments Chloride Level (test code = 2075-0) 105 98-107 [facility] Hospitalerum or plasma carbon dioxide, total measurement (moles/volume)2020-02-29 16:03:00* Test Item Value Reference Range Interpretation Comments Carbon Dioxide Level (test code = 2028-9) 20 22-29 [facility] Hospitalerum or plasma anion dtt6661-30-61 16:03:00* Test Item Value Reference Range Interpretation Comments Anion Gap (test code = 28565-7) 19.0 8-16 [facility]er[facility] or plasma urea nitrogen measurement (mass/volume)2020-02-29 16:03:00* Test Item Value Reference Range Interpretation Comments Blood Urea Nitrogen (test code = 3094-0) 15 7-26 [facility]er[facility] or plasma creatinine measurement (mass/volume)2020-02-29 16:03:00* Test Item Value Reference Range Interpretation Comments Creatinine (test code = 2160-0) 0.92 0.72-1.25 [facility]er[facility] or plasma urea nitrogen/creatinine mass vxdxq9153-35-83 16:03:00* Test Item Value Reference Range Interpretation Comments BUN/Creatinine Ratio (test code = 3097-3) 16 6-25 [facility] HospitalEstimated glomerular filtration rate (GFR) zhufputlkbttj9518-87-06 16:03:00* Test Item Value Reference Range Interpretation Comments Estimat Glomerular Filtration Rate (test code = 101820288) > 60 >60 Ranges were taken from the National Kidney Disease Education Program and the [facility] Kidney Foundation literature.Reference ranges:60 or greater: Xauumq93-33 ( for 3 consecutive months): Chronic kidney disease 15 or less: Kidney failureNocona General HospitalGlucose yacnphorypr2385-74-88 16:03:00* Test Item Value Reference Range Interpretation Comments Glucose Level (test code = KVL9767) 80 74-118 [facility]er[facility] or plasma calcium measurement (mass/volume)2020-02-29 16:03:00* Test Item Value Reference Range Interpretation Comments Calcium Level (test code = 00681-9) 9.9 8.4-10.2 [facility] or plasma total bilirubin measurement (mass/volume)2020-02-29 16:03:00* Test Item Value Reference Range Interpretation Comments Total Bilirubin (test code = 1975-2) 2.8 0.2-1.2 [facility] HospitalFluoroscopic procedure less than one hour faximjnl2006-04-70 16:03:00* Test Item Value Reference Range Interpretation Comments Aspartate Amino Transf (AST/SGOT) (test code = Aspartate Amino Transf (AST/SGOT)) 17 5-34 [facility] Hospitalerum or plasma alanine aminotransferase measurement (enzymatic activity/volume)2020-02-29 16:03:00* Test Item Value Reference Range Interpretation Comments Alanine Aminotransferase (ALT/SGPT) (test code = 1742-6) 19 0-55 [facility] Hospitaler[facility] or plasma protein measurement (mass/volume)2020-02-29 16:03:00* Test Item Value Reference Range Interpretation Comments Total Protein (test code = 2885-2) 7.8 6.5-8.1 [facility] or plasma albumin measurement (mass/volume)2020-02-29 16:03:00* Test Item Value Reference Range Interpretation Comments Albumin (test code = 1751-7) 4.7 3.5-5.0 [facility] HospitalPlasma globulin measurement (mass/volume) 2020-02-29 16:03:00* Test Item Value Reference Range Interpretation Comments Globulin (test code = 08465-1) 3.1 2.3-3.5 [facility]er[facility] or plasma albumin/globulin mass hsksa9897-17-09 16:03:00* Test Item Value Reference Range Interpretation Comments Albumin/Globulin Ratio (test code = 1759-0) 1.5 0.8-2.0 [facility]er[facility] or plasma alkaline phosphatase measurement (enzymatic activity/volume)2020-02-29 16:03:00* Test Item Value Reference Range Interpretation Comments Alkaline Phosphatase (test code = 6768-6) 122 40-150 [facility] HospitalUrine color hvnyqdgbkjxge2431-48-89 16:01:00* Test Item Value Reference Range Interpretation Comments Urine Color (test code = 5778-6) YELLOW YELLOW [facility] HospitalUrine yqblygm0606-48-55 16:01:00* Test Item Value Reference Range Interpretation Comments Urine Clarity (test code = 73141-4) CLEAR CLEAR [facility] Hospitalpecific gravity of Urine by Test strip 2020-02-29 16:01:00* Test Item Value Reference Range Interpretation Comments Urine Specific [place] (test code = 5811-5) >=1.030 1.010-1.02 5 [facility] HospitalUrine pH measurement by automated test uwdtk5732-08-27 16:01:00* Test Item Value Reference Range Interpretation Comments Urine pH (test code = 30924-5) 6 5-7 [facility] HospitalUrine leukocyte esterase detection by zejaajeu6511-37-72 16:01:00* Test Item Value Reference Range Interpretation Comments Urine Leukocyte Esterase (test code = 5799-2) NEGATIVE NEGATIVE [facility] HospitalUrine nitrite yxguqwbcn6105-94-01 16:01:00* Test Item Value Reference Range Interpretation Comments Urine Nitrite (test code = 11333-9) NEGATIVE NEGATIVE [facility] HospitalUrine protein measurement by test strip (mass/volume)2020-02-29 16:01:00* Test Item Value Reference Range Interpretation Comments Urine Protein (test code = 5804-0) TRACE NEGATIVE [facility] HospitalUrine glucose rxhuzwvdx8295-05-45 16:01:00* Test Item Value Reference Range Interpretation Comments Urine Glucose (UA) (test code = 2349-9) NEGATIVE NEGATIVE [facility] HospitalUrine ketones detection by automated test rizqy4663-57-66 16:01:00* Test Item Value Reference Range Interpretation Comments Urine Ketones (test code = 52759-9) 2+ NEGATIVE [facility] HospitalUrine urobilinogen measurement by test strip (mass/volume)2020-02-29 16:01:00* Test Item Value Reference Range Interpretation Comments Urine Urobilinogen (test code = 49938-6) 0.2 0.2-1 [facility] HospitalUrine total bilirubin measurement (mass/volume)2020-02-29 16:01:00* Test Item Value Reference Range Interpretation Comments Urine Bilirubin (test code = 1978-6) MODERATE NEGATIVE [facility] HospitalUrine erythrocytes tivdowqwy3897-27-40 16:01:00* Test Item Value Reference Range Interpretation Comments Urine Blood (test code = 80366-7) NEGATIVE NEGATIVE [facility] HospitalAutomated urine sediment leukocyte count by microscopy (number/high power field)2020-02-29 16:01:00* Test Item Value Reference Range Interpretation Comments Urine WBC (test code = 5821-4) 0-5 0-5 [facility] HospitalErythrocytes detection in urine sediment by light tfuzgzzrby6031-50-90 16:01:00* Test Item Value Reference Range Interpretation Comments Urine RBC (test code = 41305-8) 0-5 0-5 [facility] HospitalBacteria detection in urine sediment by light rzalgoewnb3252-26-38 16:01:00* Test Item Value Reference Range Interpretation Comments Urine Bacteria (test code = 48910-0) FEW NONE [facility] HospitalEpithelial cells detection in urine sediment by light fbldvmilne4192-21-06 16:01:00* Test Item Value Reference Range Interpretation Comments Urine Epithelial Cells (test code = 00373-9) FEW NONE [facility] HospitalMucus detection in urine sediment by light fnpqfkixqi6558-49-65 16:01:00* Test Item Value Reference Range Interpretation Comments Urine Mucus (test code = 8247-9) MANY RARE [facility] ABD PELVIS W/RVMQ9561-10-35 10:01:00 Name: MELIDA LOVE [facility] : 2000 Age/S: 19 / M [address] [facility] Unit #: [id number] Loc: [place] [address] Phys: Antolin Dobson MD Acct: [id number] Di s Date: Status: REG ER PHONE #: [phone] Exam Date: 12/17/2019 0955 FAX #: [phone] Reason: generalized abdominal cramping, n/v/d EXAMS: CPT CODE: [id number] CT ABD PELVIS W/CONT 11701 HISTORY: Abdominal pain a nd cramping. COMPARISON: CT scan from July 20162018. Location: TH. CT of abdomen and pelvis with IV contrast: Aut omated exposure control. CT ABDOMEN: The lung bases are clear. Dependent changes. Nodular rounded atelectasis within the rig ht middle lobe anteromedially. 5.3 mm noncalcified right lateral basal cunningham bpleural lung nodule. The liver is enhancing homogeneously. No pa renchymal mass or nodules. Portal vein and hepatic artery are patent. Ga llbladder is without radiopaque stones. The liver is measuring 17 cm in l ength. The spleen is enhancing homogeneously. The spleen is not e nlarged. The stomach distended incompletely however it is normal in appea kelsey. Pancreas is enhancing homogeneously. Adrenals are normal. Kidneys are free from hydroureteronephrosis. Homogeneous enhancem ent. Bilateral excretion. No pathologic adenopathy. Well-o pacified abdominal and pelvic vasculature. No bowel obstruct ion. Mild left colitis with circumferential wall thickening. Small bowel loops are normal. CT PELVIS: Appendix is normal. P elvic bowel loops are unobstructed with circumferential wall thickening of the left colon with pericolonic inflammation and extending to the proxima l sigmoid colon. No free fluid or free air or abscess. Unre markable urinary bladder distended incompletely. The prostate is within n ormal limits. No pelvic pathologic adenopathy. Subcutaneous tissu es and the musculature demonstrating mild right gynecomastia. No lytic or blastic lesions visible within the bony skeleton. PAGE 1 Signed Report (CONTINUED) Name: MELIDA LOVE [facility] : 2000 Age/S: 19 / M [address] [facility] Unit #: [id number] Loc: [place] [address] Phys: Jeanne Dobson MD Acct: [id number] Dis Date: atus: REG ER PHONE #: [phone] Exam Michi e: 12/17/2019954 FAX #: [phone] Reason: general ized abdominal cramping, n/v/d EXAMS: CPT CODE: [id number] CT ABD PELVIS W/CONT 54580 <Continued> IMPRESSION: Mild left and sigmoid colitis without free fluid, free air or abscess. Mild right gynecomastia. 5.3 mm anterolateral subpleural right basal lung nodule. This was barely visible on the exam of July 20162018. at 1001 Reported and signed by: Elijah Rodriguez M.D. CC: Jeanne Dobson MD; Riki Moreira Technologist:Wendy Bates CTDI: DLP: Trnscb Date/Time: 12/17/2019 (1001) t.SDR.TH4 Orig Print D/T: S: 12/17/2019 (1004) PAGE 2 Signed Report COMPREHENSIVE METABOLIC [id number] 09:08:00 * Test Item Value Reference Range Interpretation Comments [...] code = ALKP) 149 U/L 38-126 H LQQFLG0276-89-61 09:08:00* Test Item Value Reference Range Interpretation Comments LIPASE (test code = LIP) 93 U/L 128-270 L URINALYSIS SJTWLIKA1006-37-26 09:08:00* Test Item Value Reference Range Interpretation [...] Urine Source? Clean CatchDRUGS OF ABUSE SCREEN VQ9878-13-83 09:08:00* Test Item Value Reference Range Interpretation [...] PHENCURN) NEGATIVE NEGATIV E Urine Source? Clean MlcflURKDUXC9091-73-96 09:02:00* Test Item Value Reference Range Interpretation Comments ALCOHOL (test code = ALC) <3.0 mg/dL 0.0-3.0 N -- INTERPRETIVE DATA NOTE: POSITIVE SCREENING RESULTS SHOULD BE CONSIDERED PRESUMPTIVE.WHEN COLLECTED FOR MEDICAL PURPOSES ONLY. SPECIMEN WILL NOTBE COLLECTED BY CHAIN OF CUSTODY.IF A CONFIRMATION OF POSITIVE RESULTS IS DESIRED, ACONFIRMATION TEST MUST BE REQUESTED BY THE PHYSICIAN AT ANADDITIONAL CHARGE TO THE PATIENT. URINALYSIS WSBKOHYZ9947-75-53 09:01:00* Test Item Value Reference Range Interpretation [...] Urine Source? Clean CatchDRUGS OF ABUSE SCREEN [id number] 09:01:00* Test Item Value Reference Range Interpretation [...] NEGATIV E Urine Source? Clean CatchCOMPREHENSIVE METABOLIC [id number] 09:01:00* Test Item Value Reference Range Interpretation [...] TOTAL (test code = ALKP) IUnit/L 65-260 TTQVMW3797-62-80 09:01:00* Test Item Value Reference Range Interpretation Comments LIPASE (test code = LIP) Unit/L 144-286 CBC W/AUTO [id number] 08:53:00* Test Item Value Reference Range Interpretation [...] REQUIRED (test code = MDIFF) NO URINALYSIS WGLBOGIV1168-01-33 08:53:00* Test Item Value Reference Range Interpretation [...] Urine Source? Clean CatchDRUGS OF ABUSE SCREEN [id number] 08:53:00* Test Item Value Reference Range Interpretation [...] Clean Catch- XR ANKLE 3 + V [id number] 15:29:00 Name: MELIDA LOVE [facility] : 2000 Age/S:19 /M [address] [facility] Unit#:[id number] Loc: [place] [address] Phys: Osvaldo Tello NP Dis Date: PHONE #: [phone] Status: PRE ER FAX #: [phone] Exam Date: 08/24/2019 Re ason: injury EXAMS: CPT CODE: [id number] XR ANKLE 3 + [place] LT [address] REASON FOR E XAM: injury EXAM ORDER DATE: 08/24/2019 3:14 PM Order ing: Sarah Tello NP Attending: Location:[facility] [place] OCEDURE: - XR ANKLE 3 + V [...] Sarah Tello NP Techn ologist: Wendy Bates [facility] Data: 0 08/24/2019 (1529) AshutoshVTL PAGE 1 Signed Report STREPTOCOCCUS PCR SCREEN 2019-06-09 03:24:00* Test Item Value Reference Range Interpretation Comments STREPTOCOCCUS DYSGALACTIAE (test code = STREPGC) NEGATIVE FOR G/C N EGATIVE STREPA MOLECULAR (test code = STREPAMOL) NEGATIVE FOR GRP A NEGATIV E - XR CHEST 1 [id number] 12:29:00 Name: MELIDA LOVE [facility] : 2000 Age/S:18 /M [address] [facility] Unit#:[id number] Loc: [place] [address] Phys: Keon Eduardo MD Dis Date: PHONE #: [phone] Status: REG ER FAX #: [phone] Exam Date: 03/13/2019 Reason: CP EXAMS: CPT CODE: [id number] XR CHEST 1 V 77848 REASON FOR EXAM: CP Exam Order Date: 03/13/2019 11:23 AM Ordering M.D.: Keon Eduardo MD PROCEDURE: - XR CHEST [...] MD Technologist: Wendy Bates Trnscrpt Data: 03/13/2019 (3054) AshutoshRR31 Orig Print D/T: S: 03/13/2019 (2902) PAGE 1 Signed Report [id number] 12:10:00* Test Item Value Reference Range Interpretation Comments TROPONIN-I (test code = TROPI) <0.015 ng/mL 0.00-0.056 N COMPREHENSIVE METABOLIC [id number] 12:10:00* Test Item Value Reference Range Interpretation [...] = ALKP) 142 U/L 38-126 H CPK-MB [id number] 12:10:00* Test Item Value Reference Range Interpretation Comments CREATINE KINASE (CK) (test code = CK) 119 U/L 39-308 N CKMB (test code = CKMBT) 0.7 ng/mL 0.0-5.0 N RELATIVE % INDEX (test code = REL%) 0.6 % [id number] 12:05:00* Test Item Value Reference Range Interpretation Comments D-DIMER (test code = DDIMER) < 100 ng/ml < 600 URINALYSIS [id number] 11:58:00* Test Item Value Reference Range Interpretation [...] HPF NONE Urine Source? Clean CatchCOMPREHENSIVE METABOLIC [id number] 11:53:00* Test Item Value Reference Range Interpretation [...] (test code = ALKP) IUnit/L 65-260 CPK-MB [id number] 11:53:00* Test Item Value Reference Range Interpretation Comments CREATINE KINASE (CK) (test code = CK) IUnit/L 26-208 CKMB (test code = CKMBT) ng/mL 0-6.0 RELATIVE % INDEX (test code = REL%) % URINALYSIS [id number] 11:49:00* Test Item Value Reference Range Interpretation [...] HPF NONE Urine Source? Clean CatchCBC W/AUTO [id number] 11:45:00* Test Item Value Reference Range Interpretation [...] BA#) 0.04 K/mm3 0.0-0.2 N BASIC METABOLIC [id number] 16:00:00* Test Item Value Reference Range Interpretation [...] CA) 8.6 mg/dL 8.5-10.1 N BASIC METABOLIC [id number] 15:54:00* Test Item Value Reference Range Interpretation [...] CA) mg/dL 8.4-10.2 - CT HEAD/BRAIN W/O [id number] 04:15:00 Name: MELIDA LOVE [facility] : 2000 Age/S: 18 / M [address] [facility] Unit #: [id number] Loc: [place] Ch[place]z [address] Phys: Lydia Garcia MD Acct: [id number] Dis Date: Status: REG ER PHONE #: [phone] Exam Date: 11/28/2018407 FAX #: [phone] Reason: ALTERED MENTAL STATUS EXAMS: CPT CODE: [id number] CT HEAD/BRAIN W/O CONT 70320 EXAM: - CT HEAD/BRAIN W/O CONT HISTORY: [...] Lydia Garcia MD; Aashish Tam MD Technologist:LIVE ANTHONY RT(R),CT CTDI: DLP: Trnscb Date/Time: 11/28/2018 (041) TitusR.MKM4 Orig Print D/T: S: 11/28/2018 (0416) PAGE 1 Signed Report [id number] 00:21:00* Test Item Value Reference Range Interpretation Comments ACETAMINOPHEN (test code = ACET) < 10 mcg/mL 0-30 N A RANGE OF 10-30 UG/ML IS A THERAPEUTIC RANGE. TOXIC CONCENTRATIONS: >150 UG/ML AFTER 4 HOURS OF INGESTION > 50 UG/ML AFTER 12 HOURS OF INGESTION [id number] 00:21:00* Test Item Value Reference Range Interpretation Comments SALICYLATE (test code = MARY) 0.5 mg/dL 2.8-20.0 L [id number] 00:21:00* Test Item Value Reference Range Interpretation Comments ALCOHOL (test code = ALC) <3.0 mg/dL 0.0-3.0 N -- INTERPRETIVE DATA NOTE: POSITIVE SCREENING RESULTS SHOULD BE CONSIDERED PRESUMPTIVE.WHEN COLLECTED FOR MEDICAL PURPOSES ONLY. SPECIMEN WILL NOTBE COLLECTED BY CHAIN OF CUSTODY.IF A CONFIRMATION OF POSITIVE RESULTS IS DESIRED, ACONFIRMATION TEST MUST BE REQUESTED BY THE PHYSICIAN AT ANADDITIONAL CHARGE TO THE PATIENT. URINALYSIS [id number] 21:42:00* Test Item Value Reference Range Interpretation [...] A UA PH DIPSTICK (test code = GERER) 5.0 5.0-8.0 UA PROTEIN DIPSTICK (test code [...] Urine Source? Clean CatchDRUGS OF ABUSE SCREEN [id number] 21:42:00* Test Item Value Reference Range Interpretation [...] NEGATIVE NEGATIV E Urine Source? Clean CatchURINALYSIS [id number] 21:37:00* Test Item Value Reference Range Interpretation [...] Urine Source? Clean CatchDRUGS OF ABUSE SCREEN [id number] 21:37:00* Test Item Value Reference Range Interpretation [...] NEGATIV E Urine Source? Clean CatchCOMPREHENSIVE METABOLIC [id number] 21:00:00* Test Item Value Reference Range Interpretation Comments SODIUM (test code = NA) 140 mmol/L 136-145 N POTASSIUM (test code = K) 2.9 mmol/L 3.5-5.1 L Re sults called to SHRAAN Bernstein V.LAB.CB1 11/27/18 2100Critical results verified and [...] ALKP) 145 U/L 38-126 H CBC W/AUTO [id number] 20:44:00* Test Item Value Reference Range Interpretation [...] = MDIFF) NO - CT ABD PELVIS [id number] 04:30:00 Name: MELIDA LOVE [facility] : 2000 Age/S: 18 / M [address] [place] [address] Unit #: [id number] Loc: Columba Chairez [address] Phys: Keon Eduardo MD Acct: [id number] Dis Date: Status: REG ER PHONE #: [phone] Exam Date: 08/14/2018414 FAX #: [phone] Reason: LLQ pain, V/D, fever EXAMS: CPT CODE: [id number] CT ABD PELVIS W/CONT 28753 EXAM: - CT ABD PELVIS W/CONT INDICATION: 18 years -old Male with LLQ pain, V/D, fever TECHNIQUE: Contrast - IV contrast was given. No oral contrast was given Portal venous phase - abdomen and pelvis Delayed phase imaging was obtained through the abdomen and pelvis Reconstructions - coronal and sagittal planes Automated exposure reduction (Auto mA/Smart mA) was utilized in compliance with ACR [employer] COMPARI SON: 05/03/2018 FINDINGS: Statements: None. Th oracic: Included images of the lower chest demonstrate no abnormalities. Hepatobiliary: The liver is normal without focal lesion. The gallbladder is normal. No biliary dilation. Pancreas: Normal. Spleen: Normal. Adrenals: Normal. Genitou rinary: The kidneys are normal. No evidence of hydronephrosis. Evaluatio n of the bladder is limited, but no obvious bladder abnormality is present . Gastrointestinal: No bowel obstruction or perienteric inflammati on. The appendix is normal. Vascular: No evidence of aneurys m or dissection. Lymphatics: No enlarged lymph nodes by CT size c riteria. Bones/Soft Tissues: No acute osseous findings. No ventral hernias. Peritoneum/Other: No extraluminal air. No extraluminal f luid. PAGE 1 Signed Report (CONTINUED) Name: MELIDA LOVE [facility] : 2000 Age/S: 18 / M [address] [facility] Unit #: [id number] Loc: Columba Chairez [address] Phy s: Keon Eduardo MD Acct: [id number] Dis Date: Status: REG ER PHONE #: [phone] Exam Date: 08/14/2018414 FAX #: [phone] Reason: LLQ pain, V/D, fever EXAMS: CPT CODE: [id number] CT ABD PELVIS W/CONT 77860 <Continued> IMPRESSION: 1. Normal appendix. No acute inflammatory process. No other acute abnormalities. at 0430 Reporte d and signed by: Trell Martinez MD CC: Raymundo Tam MD; Keon Eduardo MD Technologist:Saji Alanis RT(R) CTDI: DLP: Trnscb Date/Time: 08/14/2018 (043) t.SDR.R XC2 Orig Print D/T: S: 08/14/2018 (0433) CTDI: DLP: PAGE 2 Signed Report COMPREHENSIVE METABOLIC [id number] 03:32:00* Test Item Value Reference Range Interpretation [...] code = ALKP) 133 U/L 38-126 H [id number] 03:32:00* Test Item Value Reference Range Interpretation Comments LIPASE (test code = LIP) 116 U/L 128-270 L [id number] 03:32:00* Test Item Value Reference Range Interpretation Comments MAGNESIUM (test code = MAG) 1.5 mg/dL 1.6-2.3 L COMPREHENSIVE METABOLIC [id number] 03:26:00* Test Item Value Reference Range Interpretation [...] TOTAL (test code = ALKP) IUnit/L 65-260 [id number] 03:26:00* Test Item Value Reference Range Interpretation Comments LIPASE (test code = LIP) Unit/L 144-286 [id number] 03:26:00* Test Item Value Reference Range Interpretation Comments MAGNESIUM (test code = MAG) mg/dL 1.8-2.4 URINALYSIS [id number] 03:22:00* Test Item Value Reference Range Interpretation [...] MANY per LPF NONE-FEW A URINALYSIS W/O [id number] 03:22:00* Test Item Value Reference Range Interpretation Comments UA MICROSCOPIC NEEDED? (test code = UAMICRO) YES CBC W/AUTO [id number] 03:16:00* Test Item Value Reference Range Interpretation [...] REQUIRED (test code = MDIFF) NO URINALYSIS [id number] 03:16:00* Test Item Value Reference Range Interpretation [...] = WBCU) per HPF 0-5 URINALYSIS W/O [id number] 03:16:00* Test Item Value Reference Range Interpretation Comments UA MICROSCOPIC NEEDED? (test code = UAMICRO) YES URINALYSIS [id number] 03:16:00* Test Item Value Reference Range Interpretation [...] = WBCU) per HPF 0-5 URINALYSIS W/O [id number] 03:16:00* Test Item Value Reference Range Interpretation Comments UA MICROSCOPIC NEEDED? (test code = UAMICRO) YES
[2020-03-07] MEDS ORDERED: SODIUM CHLORIDE 0.9% 1000ML 1,000 ML IV STA (18:50)
[2020-03-07] MEDS ORDERED: PANTOPRAZOLE 40 MG 10ML VIAL ONE (18:50)
[2020-03-07] MEDS ORDERED: SODIUM CHLORIDE 0.9% 1000ML 1,000 ML ONE (18:51)
[2020-03-07] MEDS ORDERED: ONDANSETRON HCL INJ 2MG/ML 2ML 2 MG/ML VIAL ONE (18:51)
[2020-03-07 19:05] LABS: ALANINE AMINOTRANSFERASE 21 IU/L (0-55); ALBUMIN 5.1 g/dL (3.5-5.0); ALBUMIN/GLOBULIN RATIO 1.5 (0.8-2.0); ALKALINE PHOSPHATASE 141 IU/L (40-150); ANION GAP 20.6 mmol/L (8-16); BLOOD UREA NITROGEN 19 mg/dL (7-26); BUN/CREATININE RATIO 16 (6-25); CALCIUM 10.1 mg/dL (8.4-10.2); CARBON DIOXIDE 17 mmol/L (22-29); CHLORIDE 105 mmol/L (98-107); CREATININE, SERUM 1.16 mg/dL (0.72-1.25); EST GLOMERULAR FILTRATION RATE > 60 ML/MIN (60-); GLUCOSE 105 mg/dL (74-118); POTASSIUM 3.6 mmol/L (3.5-5.1); SODIUM 139 mmol/L (136-145)
[2020-03-07 19:23] LABS: AMYLASE 51 U/L (25-125); LIPASE 26 U/L (8-78)
--- NOTE | 2020-03-07 19:23 | NUR ---
Bedside shift report given to Dasia. Pt updated on plan of care.
[2020-03-07] MEDS ORDERED: ONDANSETRON HCL INJ 2MG/ML 2ML 2 MG/ML VIAL IV PRN (20:15)
--- OUTSIDE RECORDS SUMMARY | 2020-03-07 20:21 | XMS REPORT | Continuity of Care Document ---
Author Author [facility] t Organization [facility] Address [facility] [address] [place] [address] Phone Unavailable Care Team Providers Care Manager Dental Name Role Phone NO, PCP PCP Unavailable Osvaldo WORLEY Attphyosvaldo Unavailable Payers Payer Name Policy Type Policy Number Effective Date Expiration Date Osvaldo maurice [facility] [id number] 2008 00:00:00 [facility] Problems Condition Name Condition Details Condition Category Status Onset Date Resolution Date Last Treatment Date Treating Clinician Comments Source Problem Condition Active [facility] Allergies, Adverse Reactions, Alerts Allergy Name Allergy Type Status Severity Reaction(s) Onset Date Inacti ve Date Treating Clinician Comments Source No Known Allergies DA Active U 2016-12-16 00:00:00 [facility] Social History Social Habit Start Date Stop Date Quantity Comments Source Sex Assigned At 2000 00:00:00 2000 00:00:00 Male [facility] Medications Ordered Medication Name Filled Medication Name Start Date Stop Da te Current Medication? Ordering Clinician Indication Dosage Frequency Signature (SIG) Comments Components Source Omeprazole Omeprazole 2020-02-29 17:58:00 Yes 40 Sabina ly [facility] Vital Signs Vital Name Observation Time Observation Value Comments Source Weight 2020-02-29 15:53:00 180 [lb_av] [facility] BMI (Body Mass Index) 2020-02-29 15:53:00 28.2 kg/m2 [facility] Procedures Procedure Date / Time Performed Performing Clinician Rizwana salamanca Computed tomography of abdomen and pelvis with contrast 00:00:00 [facility] Plan of Care Planned Activity Planned Date Details Comments Source Instructions [place] Diet - Adult [facility] Instructions Heartburn [facility] Encounters Start Date/Time End Date/Time Encounter Type Admission Type Attendi [facility] Facility Care Department Encounter ID Source 2020-02-29 16:00:00 2020-02-29 18:28:00 Departed Emergency Room 1 EVA WORLEY [facility] [id number] I [facility] Results Test Description Test Time Test Comments Results Result Comments Source CT ABDOMEN/PELVIS W 2020-02-29 17:41:00 [facility] [address] [address] Patient Name: MELIDA LOVE MR #: [id number] : 2000 Age/Sex: 19/M Req #: [id number] Adm Physician: Ordered by: EVA WORLEY DO Report #: [id number] Location: ER Room/Bed: Procedure: [id number] CT/CT ABDOMEN/PELVIS W Exam Date: 02/29/20 Exam Time: 1435 REPORT STATUS: Signed EXAM: CT Abdomen and [...] Count (test code = 6690-2) 9.51 4.8-10.8 [facility] automated count (number/volume)2020-02-29 16:03:00* Test Item Value Reference Range Interpretation Comments Red Blood Count (test code = 789-8) 5.29 4.3-5.7 [facility] hemoglobin measurement (moles/volume)2020-02-29 16:03:00* Test Item Value Reference Range Interpretation Comments Hemoglobin (test code = 04830-8) 14.3 14.0-18.0 [facility] CenterAutomated blood hematocrit (volume fraction)2020-02-29 16:03:00* Test Item Value Reference Range Interpretation Comments Hematocrit (test code = 4544-3) 44.0 38.2-49.6 [facility] CenterAutomated erythrocyte mean corpuscular mobntu0681-53-34 16:03:00* Test Item Value Reference Range Interpretation Comments Mean Corpuscular Volume (test code = 787-2) 83.2 81-99 [facility] CenterAutomated erythrocyte mean corpuscular hemoglobin (mass per erythrocyte)2020-02-29 16:03:00* Test Item Value Reference Range Interpretation Comments Mean Corpuscular Hemoglobin (test code = 785-6) 27.0 28-32 [facility] CenterAutomated erythrocyte mean corpuscular hemoglobin concentration measurement (mass/volume)2020-02-29 16:03:00* Test Item Value Reference Range Interpretation Comments Mean Corpuscular Hemoglobin Concent (test code = 786-4) 32.5 31-35 [facility] CenterRDW OnfRj-Cwp1171-42-13 16:03:00* Test Item Value Reference Range Interpretation Comments Red Cell Distribution Width (test code = 83069-2) 11.8 11.7 -14.4 [facility] CenterAutomated blood platelet count (count/volume)2020-02-29 16:03:00* Test Item Value Reference Range Interpretation Comments Platelet Count (test code = 777-3) 226 140-360 [facility] CenterAutomated blood segmented neutrophil count as percentage of total iaedalutbm2346-52-87 16:03:00* Test Item Value Reference Range Interpretation Comments Neutrophils (%) (Auto) (test code = 08005-5) 64.0 38.7-80.0 [facility] CenterAutomated blood lymphocyte count as percentage ot total ajcmuumrda7878-96-82 16:03:00* Test Item Value Reference Range Interpretation Comments Lymphocytes (%) (Auto) (test code = 736-9) 29.1 18.0-39.1 [facility] CenterAutomated blood monocyte count as percentage of total nhxijmoikz2418-84-23 16:03:00* Test Item Value Reference Range Interpretation Comments Monocytes (%) (Auto) (test code = 5905-5) 6.0 4.4-11.3 [facility] CenterAutomated blood eosinophil count as percentage of total rqtcovvque0302-09-08 16:03:00* Test Item Value Reference Range Interpretation Comments Eosinophils (%) (Auto) (test code = 713-8) 0.2 0.0-6.0 [facility] CenterAutcritical access hospitaled blood basophil count as percentage of total kxhnwtpwgd4608-93-15 16:03:00* Test Item Value Reference Range Interpretation Comments Basophils (%) (Auto) (test code = 706-2) 0.4 0.0-1.0 [facility] CenterFluoroscopic procedure less than one hour yrojxkgm1731-93-11 16:03:00* Test Item Value Reference Range Interpretation Comments IM GRANULOCYTES % (test code = IM GRANULOCYTES %) 0.3 0.0- 1.0 [facility] CenterAutomated blood neutrophil count 2020-02-29 16:03:00* Test Item Value Reference Range Interpretation Comments Neutrophils # (Auto) (test code = 751-8) 6.1 2.1-6.9 [facility] CenterBlood lymphocytes count (number/volume) 2020-02-29 16:03:00* Test Item Value Reference Range Interpretation Comments Lymphocytes # (Auto) (test code = 50618-2) 2.8 1.0-3.2 [facility] CenterBlood monocytes automated count (number/volume)2020-02-29 16:03:00* Test Item Value Reference Range Interpretation Comments Monocytes # (Auto) (test code = 742-7) 0.6 0.2-0.8 [facility] CenterAutomated blood eosinophil count 2020-02-29 16:03:00* Test Item Value Reference Range Interpretation Comments Eosinophils # (Auto) (test code = 711-2) 0.0 0.0-0.4 [facility] CenterAutomated blood basophil count (count/volume)2020-02-29 16:03:00* Test Item Value Reference Range Interpretation Comments Basophils # (Auto) (test code = 704-7) 0.0 0.0-0.1 [facility] CenterFluoroscopic procedure less than one hour chvajxpe6178-03-23 16:03:00* Test Item Value Reference Range Interpretation Comments Absolute Immature Granulocyte (auto (rafa t code = Absolute Immature Granulocyte (auto) 0.03 0-0.1 [facility] Cluberum or plasma sodium measurement (moles/volume)2020-02-29 16:03:00* Test Item Value Reference Range Interpretation Comments Sodium Level (test code = 2951-2) 140 136-145 [facility] Cluberum or plasma potassium measurement (moles/volume)2020-02-29 16:03:00* Test Item Value Reference Range Interpretation Comments Potassium Level (test code = 2823-3) 4.0 3.5-5.1 [facility] Cluberum or plasma chloride measurement (moles/volume)2020-02-29 16:03:00* Test Item Value Reference Range Interpretation Comments Chloride Level (test code = 2075-0) 105 98-107 [facility] Cluberum or plasma carbon dioxide, total measurement (moles/volume)2020-02-29 16:03:00* Test Item Value Reference Range Interpretation Comments Carbon Dioxide Level (test code = 2028-9) 20 22-29 [facility] Cluberum or plasma anion tee4394-15-69 16:03:00* Test Item Value Reference Range Interpretation Comments Anion Gap (test code = 87409-3) 19.0 8-16 [facility] Cluberum or plasma urea nitrogen measurement (mass/volume)2020-02-29 16:03:00* Test Item Value Reference Range Interpretation Comments Blood Urea Nitrogen (test code = 3094-0) 15 7-26 [facility] Cluberum or plasma creatinine measurement (mass/volume)2020-02-29 16:03:00* Test Item Value Reference Range Interpretation Comments Creatinine (test code = 2160-0) 0.92 0.72-1.25 [facility] Cluberum or plasma urea nitrogen/creatinine mass cssjj8118-43-17 16:03:00* Test Item Value Reference Range Interpretation Comments BUN/Creatinine Ratio (test code = 3097-3) 16 6-25 [facility] CenterEstimated glomerular filtration rate (GFR) fbqwjoqnnwohi6977-19-86 16:03:00* Test Item Value Reference Range Interpretation Comments Estimat Glomerular Filtration Rate (test code = 683161310) > 60 >60 Ranges were taken from the National Kidney Disease Education Program and the [facility] Kidney Foundation literature.Reference ranges:60 or greater: Hwbzvk14-75 ( for 3 consecutive months): Chronic kidney disease 15 or less: Kidney failurePeterson Regional Medical CenterGlucose chozgdjyskb0554-87-06 16:03:00* Test Item Value Reference Range Interpretation Comments Glucose Level (test code = SKH7045) 80 74-118 [facility] Cluberum or plasma calcium measurement (mass/volume)2020-02-29 16:03:00* Test Item Value Reference Range Interpretation Comments Calcium Level (test code = 94946-5) 9.9 8.4-10.2 [facility] Cluberum or plasma total bilirubin measurement (mass/volume)2020-02-29 16:03:00* Test Item Value Reference Range Interpretation Comments Total Bilirubin (test code = 1975-2) 2.8 0.2-1.2 [facility] CenterFluoroscopic procedure less than one hour tibsiyzz2508-73-19 16:03:00* Test Item Value Reference Range Interpretation Comments Aspartate Amino Transf (AST/SGOT) (test code = Aspartate Amino Transf (AST/SGOT)) 17 5-34 [facility] Cluberum or plasma alanine aminotransferase measurement (enzymatic activity/volume)2020-02-29 16:03:00* Test Item Value Reference Range Interpretation Comments Alanine Aminotransferase (ALT/SGPT) (test code = 1742-6) 19 0-55 [facility] Cluberum or plasma protein measurement (mass/volume)2020-02-29 16:03:00* Test Item Value Reference Range Interpretation Comments Total Protein (test code = 2885-2) 7.8 6.5-8.1 [facility] Cluberum or plasma albumin measurement (mass/volume)2020-02-29 16:03:00* Test Item Value Reference Range Interpretation Comments Albumin (test code = 1751-7) 4.7 3.5-5.0 [facility] CenterPlasma globulin measurement (mass/volume) 2020-02-29 16:03:00* Test Item Value Reference Range Interpretation Comments Globulin (test code = 31642-2) 3.1 2.3-3.5 [facility] Cluberum or plasma albumin/globulin mass qhvqi1943-22-87 16:03:00* Test Item Value Reference Range Interpretation Comments Albumin/Globulin Ratio (test code = 1759-0) 1.5 0.8-2.0 [facility] Cluberum or plasma alkaline phosphatase measurement (enzymatic activity/volume)2020-02-29 16:03:00* Test Item Value Reference Range Interpretation Comments Alkaline Phosphatase (test code = 6768-6) 122 40-150 [facility] CenterUrine color hyqvziaxfghed6998-07-14 16:01:00* Test Item Value Reference Range Interpretation Comments Urine Color (test code = 5778-6) YELLOW YELLOW [facility] CenterUrine qqqtans2490-90-36 16:01:00* Test Item Value Reference Range Interpretation Comments Urine Clarity (test code = 53629-3) CLEAR CLEAR [facility] Trophy Clubpecific gravity of Urine by Test strip 2020-02-29 16:01:00* Test Item Value Reference Range Interpretation Comments Urine Specific [place] (test code = 5811-5) >=1.030 1.010-1.02 5 [facility] CenterUrine pH measurement by automated test pfarf8375-37-13 16:01:00* Test Item Value Reference Range Interpretation Comments Urine pH (test code = 87937-2) 6 5-7 [facility] CenterUrine leukocyte esterase detection by azhnqozl0302-70-32 16:01:00* Test Item Value Reference Range Interpretation Comments Urine Leukocyte Esterase (test code = 5799-2) NEGATIVE NEGATIVE [facility] CenterUrine nitrite rmutnlzla4755-09-63 16:01:00* Test Item Value Reference Range Interpretation Comments Urine Nitrite (test code = 55898-0) NEGATIVE NEGATIVE [facility] CenterUrine protein measurement by test strip (mass/volume)2020-02-29 16:01:00* Test Item Value Reference Range Interpretation Comments Urine Protein (test code = 5804-0) TRACE NEGATIVE [facility] CenterUrine glucose irqjluphv3138-57-33 16:01:00* Test Item Value Reference Range Interpretation Comments Urine Glucose (UA) (test code = 2349-9) NEGATIVE NEGATIVE [facility] CenterUrine ketones detection by automated test zpgus8357-78-67 16:01:00* Test Item Value Reference Range Interpretation Comments Urine Ketones (test code = 79707-2) 2+ NEGATIVE [facility] CenterUrine urobilinogen measurement by test strip (mass/volume)2020-02-29 16:01:00* Test Item Value Reference Range Interpretation Comments Urine Urobilinogen (test code = 90106-0) 0.2 0.2-1 [facility] CenterUrine total bilirubin measurement (mass/volume)2020-02-29 16:01:00* Test Item Value Reference Range Interpretation Comments Urine Bilirubin (test code = 1978-6) MODERATE NEGATIVE [facility] CenterUrine erythrocytes rddbdowjj6395-99-27 16:01:00* Test Item Value Reference Range Interpretation Comments Urine Blood (test code = 33963-0) NEGATIVE NEGATIVE [facility] CenterAutomated urine sediment leukocyte count by microscopy (number/high power field)2020-02-29 16:01:00* Test Item Value Reference Range Interpretation Comments Urine WBC (test code = 5821-4) 0-5 0-5 [facility] CenterErythrocytes detection in urine sediment by light mnglkdlvnj1045-22-75 16:01:00* Test Item Value Reference Range Interpretation Comments Urine RBC (test code = 28854-8) 0-5 0-5 [facility] CenterBacteria detection in urine sediment by light ctfhjfgzdp3176-10-41 16:01:00* Test Item Value Reference Range Interpretation Comments Urine Bacteria (test code = 27771-9) FEW NONE [facility] CenterEpithelial cells detection in urine sediment by light hrnzcwrcga7043-22-86 16:01:00* Test Item Value Reference Range Interpretation Comments Urine Epithelial Cells (test code = 82408-1) FEW NONE [facility] CenterMucus detection in urine sediment by light fmliaxalaw4052-95-90 16:01:00* Test Item Value Reference Range Interpretation Comments Urine Mucus (test code = 8247-9) MANY RARE [facility]- CT ABD PELVIS W/HGYD2589-79-36 10:01:00 Name: MELIDA LOVE [facility] : 2000 Age/S: 19 / M [address] [facility] Unit #: [id number] Loc: [place] [address] Phys: Antolin Dobson MD Acct: [id number] Di s Date: Status: REG ER PHONE #: [phone] Exam Date: 12/17/2019 0955 FAX #: Reason: generalized abdominal cramping, n/v/d EXAMS: CPT CODE: [id number] CT ABD PELVIS W/CONT 32175 HISTORY: Abdominal pain a nd cramping. COMPARISON: [...] 1 Signed Report (CONTINUED) Name: MELIDA LOVE [facility] : 2000 Age/S: 19 / M [address] [facility] Unit #: [id number] Loc: [place] [address] Phys: Jeanne Dobson MD Acct: [id number] Dis Date: atus: REG ER PHONE #: [phone] Exam Michi e: 12/17/2019954 FAX #: [phone] Reason: general ized abdominal cramping, n/v/d EXAMS: CPT CODE: [id number] CT ABD PELVIS W/CONT 72698 <Continued> IMPRESSION: Mild left and sigmoid colitis [...] (1004) PAGE 2 Signed Report COMPREHENSIVE METABOLIC [id number] 09:08:00 * Test Item Value Reference Range [...] code = ALKP) 149 U/L 38-126 H WRYGQR0339-53-45 09:08:00* Test Item Value Reference Range Interpretation Comments LIPASE (test code = LIP) 93 U/L 128-270 L URINALYSIS EEAAQDKX5071-68-69 09:08:00* Test Item Value Reference Range Interpretation [...] Urine Source? Clean CatchDRUGS OF ABUSE SCREEN GG1223-03-43 09:08:00* Test Item Value Reference Range Interpretation [...] PHENCURN) NEGATIVE NEGATIV E Urine Source? Clean LvmpzZJBGAMS8544-50-97 09:02:00* Test Item Value Reference Range Interpretation Comments ALCOHOL (test code = ALC) <3.0 mg/dL 0.0-3.0 N -- INTERPRETIVE DATA NOTE: POSITIVE SCREENING RESULTS SHOULD BE CONSIDERED PRESUMPTIVE.WHEN COLLECTED FOR MEDICAL PURPOSES ONLY. SPECIMEN WILL NOTBE COLLECTED BY CHAIN OF CUSTODY.IF A CONFIRMATION OF POSITIVE RESULTS IS DESIRED, ACONFIRMATION TEST MUST BE REQUESTED BY THE PHYSICIAN AT ANADDITIONAL CHARGE TO THE PATIENT. URINALYSIS RJADKUPS4055-75-29 09:01:00* Test Item Value Reference Range Interpretation [...] Urine Source? Clean CatchDRUGS OF ABUSE SCREEN [id number] 09:01:00* Test Item Value Reference Range Interpretation [...] NEGATIV E Urine Source? Clean CatchCOMPREHENSIVE METABOLIC FGFDH8084-03-15 09:01:00* Test Item Value Reference Range Interpretation [...] TOTAL (test code = ALKP) IUnit/L 65-260 IZTHDR6385-64-77 09:01:00* Test Item Value Reference Range Interpretation Comments LIPASE (test code = LIP) Unit/L 144-286 CBC W/AUTO ZLRN2705-11-19 08:53:00* Test Item Value Reference Range Interpretation [...] REQUIRED (test code = MDIFF) NO URINALYSIS SWDKBLED2883-59-20 08:53:00* Test Item Value Reference Range Interpretation [...] Urine Source? Clean CatchDRUGS OF ABUSE SCREEN [id number] 08:53:00* Test Item Value Reference Range Interpretation [...] Clean Catch- XR ANKLE 3 + V [id number] 15:29:00 Name: MELIDA LOVE [facility] : 2000 Age/S:19 /M [address] [facility] Unit#:[id number] Loc: [place] [address] Phys: Osvaldo Tello NP Dis Date: PHONE #: [phone] Status: PRE ER FAX #: [phone] Exam Date: 08/24/2019 Re ason: injury EXAMS: CPT CODE: [id number] XR ANKLE 3 + [place] [address] REASON FOR E XAM: injury EXAM ORDER DATE: 08/24/2019 3:14 PM Order ing: Sarah Tello NP Attending: Location:[facility] [place] OCEDURE: - XR ANKLE 3 + V [...] Sarah Tello NP Techn ologist: Wendy Bates Trnspencer hospitalt Data: 0 08/24/2019 (1529) AshutoshVTL PAGE 1 Signed Report STREPTOCOCCUS PCR SCREEN 2019-06-09 03:24:00* Test Item Value Reference Range Interpretation Comments STREPTOCOCCUS DYSGALACTIAE (test code = STREPGC) NEGATIVE FOR G/C N EGATIVE STREPA MOLECULAR (test code = STREPAMOL) NEGATIVE FOR GRP A NEGATIV E - XR CHEST 1 [id number] 12:29:00 Name: MELIDA LOVE [facility] : 2000 Age/S:18 /M [address] [facility] Unit#:[id number] Loc: [place] [address] Phys: Keon Eduardo MD Dis Date: PHONE #: [phone] Status: REG ER FAX #: [phone] Exam Date: 03/13/2019 Reason: CP EXAMS: CPT CODE: [id number] XR CHEST 1 V 17318 REASON FOR EXAM: CP Exam Order Date: [...] MD Technologist: Wendy Bates Trnscrpt Data: 03/13/2019 (4039) AshutoshRR31 Orig Print D/T: S: 03/13/2019 (1069) PAGE 1 Signed Report [id number] 12:10:00* Test Item Value Reference Range Interpretation Comments TROPONIN-I (test code = TROPI) <0.015 ng/mL 0.00-0.056 N COMPREHENSIVE METABOLIC [id number] 12:10:00* Test Item Value Reference Range Interpretation [...] = ALKP) 142 U/L 38-126 H CPK-MB TSZVLTG1852-78-82 12:10:00* Test Item Value Reference Range Interpretation Comments CREATINE KINASE (CK) (test code = CK) 119 U/L 39-308 N CKMB (test code = CKMBT) 0.7 ng/mL 0.0-5.0 N RELATIVE % INDEX (test code = REL%) 0.6 % Z-[id number] 12:05:00* Test Item Value Reference Range Interpretation Comments D-DIMER (test code = DDIMER) < 100 ng/ml < 600 URINALYSIS [id number] 11:58:00* Test Item Value Reference Range Interpretation [...] HPF NONE Urine Source? Clean CatchCOMPREHENSIVE METABOLIC [id number] 11:53:00* Test Item Value Reference Range Interpretation [...] (test code = ALKP) IUnit/L 65-260 CPK-MB [id number] 11:53:00* Test Item Value Reference Range Interpretation Comments CREATINE KINASE (CK) (test code = CK) IUnit/L 26-208 CKMB (test code = CKMBT) ng/mL 0-6.0 RELATIVE % INDEX (test code = REL%) % URINALYSIS CLKVLRVL0990-64-15 11:49:00* Test Item Value Reference Range Interpretation [...] HPF NONE Urine Source? Clean CatchCBC W/AUTO ZIKS6324-33-08 11:45:00* Test Item Value Reference Range Interpretation [...] BA#) 0.04 K/mm3 0.0-0.2 N BASIC METABOLIC [id number] 16:00:00* Test Item Value Reference Range Interpretation [...] CA) 8.6 mg/dL 8.5-10.1 N BASIC METABOLIC [id number] 15:54:00* Test Item Value Reference Range Interpretation [...] CA) mg/dL 8.4-10.2 - CT HEAD/BRAIN W/O [id number] 04:15:00 Name: MELIDA LOVE [facility] : 2000 Age/S: 18 / M [address] [facility] Unit #: [id number] Loc: [place] [address] Phys: Lydia Garcia MD Acct: [id number] Dis Date: Status: REG ER PHONE #: [phone] Exam Date: 11/28/2018407 FAX #: [phone] Reason: ALTERED MENTAL STATUS EXAMS: CPT CODE: [id number] CT HEAD/BRAIN W/O CONT 32127 EXAM: - CT HEAD/BRAIN W/O CONT HISTORY: [...] (041) TitusR.MKM4 Orig Print D/T: S: 11/28/2018 (0410) PAGE 1 Signed Report [id number] 00:21:00* Test Item Value Reference Range Interpretation Comments ACETAMINOPHEN (test code = ACET) < 10 mcg/mL 0-30 N A RANGE OF 10-30 UG/ML IS A THERAPEUTIC RANGE. TOXIC CONCENTRATIONS: >150 UG/ML AFTER 4 HOURS OF INGESTION > 50 UG/ML AFTER 12 HOURS OF INGESTION [id number] 00:21:00* Test Item Value Reference Range Interpretation Comments SALICYLATE (test code = MARY) 0.5 mg/dL 2.8-20.0 L [id number] 00:21:00* Test Item Value Reference Range Interpretation Comments ALCOHOL (test code = ALC) <3.0 mg/dL 0.0-3.0 N -- INTERPRETIVE DATA NOTE: POSITIVE SCREENING RESULTS SHOULD BE CONSIDERED PRESUMPTIVE.WHEN COLLECTED FOR MEDICAL PURPOSES ONLY. SPECIMEN WILL NOTBE COLLECTED BY CHAIN OF CUSTODY.IF A CONFIRMATION OF POSITIVE RESULTS IS DESIRED, ACONFIRMATION TEST MUST BE REQUESTED BY THE PHYSICIAN AT ANADDITIONAL CHARGE TO THE PATIENT. URINALYSIS [id number] 21:42:00* Test Item Value Reference Range Interpretation [...] Urine Source? Clean CatchDRUGS OF ABUSE SCREEN [id number] 21:42:00* Test Item Value Reference Range Interpretation [...] NEGATIVE NEGATIV E Urine Source? Clean CatchURINALYSIS [id number] 21:37:00* Test Item Value Reference Range Interpretation [...] Urine Source? Clean CatchDRUGS OF ABUSE SCREEN [id number] 21:37:00* Test Item Value Reference Range Interpretation [...] NEGATIV E Urine Source? Clean CatchCOMPREHENSIVE METABOLIC [id number] 21:00:00* Test Item Value Reference Range Interpretation [...] ALKP) 145 U/L 38-126 H CBC W/AUTO [id number] 20:44:00* Test Item Value Reference Range Interpretation [...] = MDIFF) NO - CT ABD PELVIS W/[id number] 04:30:00 Name: MELIDA LOVE [facility] : 2000 Age/S: 18 / M [address] [place] [address] Unit #: [id number] Loc: [place] [address] Phys: Keon Eduardo MD Acct: [id number] Dis Date: Status: REG ER PHONE #: [phone] Exam Date: 08/14/2018414 FAX #: [phone] Reason: LLQ pain, V/D, fever EXAMS: CPT CODE: [id number] CT ABD PELVIS W/CONT 02628 EXAM: - CT ABD PELVIS W/CONT INDICATION: [...] 1 Signed Report (CONTINUED) Name: MELIDA LOVE [facility] : 2000 Age/S: 18 / M [address] [facility] Unit #: [id number] Loc: [facility] [id number] Phy s: Keon Eduardo MD Acct: [id number] Dis Date: Status: REG ER PHONE #: [phone] Exam Date: 08/14/2018414 FAX #: [phone] Reason: LLQ pain, V/D, fever EXAMS: CPT CODE: [id number] CT ABD PELVIS W/CONT 24908 <Continued> IMPRESSION: 1. Normal appendix. No acute inflammatory process. No other acute abnormalities. at 0430 Reporte d and signed by: Trell Martinez MD CC: Raymundo Tam MD; Keon Eduardo MD Technologist:Saji Alanis RT(R) CTDI: DLP: Trnscb Date/Time: 08/14/2018 (043) t.[email or web address] XC2 Orig Print D/T: S: 08/14/2018 (0433) CTDI: DLP: PAGE 2 Signed Report COMPREHENSIVE METABOLIC [id number] 03:32:00* Test Item Value Reference Range Interpretation [...] code = ALKP) 133 U/L 38-126 H [id number] 03:32:00* Test Item Value Reference Range Interpretation Comments LIPASE (test code = LIP) 116 U/L 128-270 L [id number] 03:32:00* Test Item Value Reference Range Interpretation Comments MAGNESIUM (test code = MAG) 1.5 mg/dL 1.6-2.3 L COMPREHENSIVE METABOLIC [id number] 03:26:00* Test Item Value Reference Range Interpretation [...] TOTAL (test code = ALKP) IUnit/L 65-260 [id number] 03:26:00* Test Item Value Reference Range Interpretation Comments LIPASE (test code = LIP) Unit/L 144-286 [id number] 03:26:00* Test Item Value Reference Range Interpretation Comments MAGNESIUM (test code = MAG) mg/dL 1.8-2.4 URINALYSIS [id number] 03:22:00* Test Item Value Reference Range Interpretation [...] MANY per LPF NONE-FEW A URINALYSIS W/O [id number] 03:22:00* Test Item Value Reference Range Interpretation Comments UA MICROSCOPIC NEEDED? (test code = UAMICRO) YES CBC W/AUTO [id number] 03:16:00* Test Item Value Reference Range Interpretation [...] REQUIRED (test code = MDIFF) NO URINALYSIS [id number] 03:16:00* Test Item Value Reference Range Interpretation [...] = WBCU) per HPF 0-5 URINALYSIS W/O [id number] 03:16:00* Test Item Value Reference Range Interpretation Comments UA MICROSCOPIC NEEDED? (test code = UAMICRO) YES URINALYSIS [id number] 03:16:00* Test Item Value Reference Range Interpretation [...] = WBCU) per HPF 0-5 URINALYSIS W/O [id number] 03:16:00* Test Item Value Reference Range Interpretation Comments UA MICROSCOPIC NEEDED? (test code = UAMICRO) YES
--- NOTE | 2020-03-07 22:57 | NUR ---
PT ARRIVED BY WHEELCHAIR TO ROOM 292, PT IS AAOX3, RR EVEN AND NON-LABORED, ON ROOM AIR. NO S/SX OF DISTRESS NOTED. ORIENTED PT TO HOSPITAL POLICIES, ROOM, CALL LIGHT, BED CONTROLS AND LIGHTS. LEFT PT LAYING SEMI FOWLERS IN BED, BED IN LOW LOCKED POSITION, SIDE RAILS UPX2, CALL LIGHT AND PHONE WITHIN REACH.
[2020-03-07 23:30] VITALS: BP 113/73
[2020-03-08] VITALS (8 sets, daily range): BP systolic 110–117; BP diastolic 68–82
[2020-03-08] MEDS: SODIUM CHLORIDE 0.9% 1000ML 1,000 ML IV SCH ×4 (00:10→20:15)
[2020-03-08] MEDS: CEFTRIAXONE SOD 1 GM/NS 50 ML 50 ML IV SCH ×2 (00:20→23:44)
[2020-03-08] MEDS: METRONIDAZOLE 500MG/NS 100ML 100 ML IV SCH ×3 (05:46→21:15)
[2020-03-08 06:53] LABS: BASOPHILS # (AUTO) 0.1 (0.0-0.1); BASOPHILS % 0.7 % (0.0-1.0); EOSINOPHILS # (AUTO) 0.1 (0.0-0.4); EOSINOPHILS % 1.3 % (0.0-6.0); HEMOGLOBIN 12.8 g/dL (14.0-18.0); LYMPHOCYTES # (AUTO) 3.2 (1.0-3.2); LYMPHOCYTES % 45.7 % (18.0-39.1); MEAN CORPUSCULAR HEMOGLOBIN 26.8 pg (28-32); MEAN CORPUSCULAR VOLUME 83.7 fL (81-99); MONOCYTES # (AUTO) 0.8 (0.2-0.8); MONOCYTES % 11.3 % (4.4-11.3); NEUTROPHILS # (AUTO) 2.8 (2.1-6.9); NEUTROPHILS % 40.7 % (38.7-80.0); PLATELET COUNT 180 x10e3/uL (140-360); RED BLOOD COUNT 4.78 x10e6/uL (4.3-5.7); RED CELL DISTRIBUTION WIDTH 11.8 % (11.7-14.4)
--- NOTE | 2020-03-08 07:00 | NUR ---
BEDSIDE SHIFT REPORT RECEIVED FROM THE HAND PROFILER RN. EDUCATED PT ABOUT FALL PRECAUTIONS. PT VERBALIZED UNDERSTANDING. CALL LIGHT WITH IN EASY REACH. BED IS LOW AND LOCKED. SIDE RAILS X2. ALL SAFETY MEASURES IN PLACE. PT DENIES NEEDS AT THIS TIME.
[2020-03-08 07:21] LABS: ALANINE AMINOTRANSFERASE 15 IU/L (0-55); ALBUMIN 3.8 g/dL (3.5-5.0); ALBUMIN/GLOBULIN RATIO 1.5 (0.8-2.0); ALKALINE PHOSPHATASE 108 IU/L (40-150); AMYLASE 52 U/L (25-125); ANION GAP 14.8 mmol/L (8-16); BLOOD UREA NITROGEN 15 mg/dL (7-26); BUN/CREATININE RATIO 15 (6-25); CALCIUM 8.7 mg/dL (8.4-10.2); CARBON DIOXIDE 20 mmol/L (22-29); CHLORIDE 108 mmol/L (98-107); CREATININE, SERUM 0.99 mg/dL (0.72-1.25); EST GLOMERULAR FILTRATION RATE > 60 ML/MIN (60-); GLUCOSE 81 mg/dL (74-118); LIPASE 35 U/L (8-78); POTASSIUM 3.8 mmol/L (3.5-5.1); SODIUM 139 mmol/L (136-145)
--- NOTE | 2020-03-08 07:30 | NUR ---
PAGED DR. PATEL REGARDING PT DIET.
[2020-03-08] MEDS: PANTOPRAZOLE 40 MG 10ML VIAL IV SCH (08:18)
--- NOTE | 2020-03-08 10:00 | NUR ---
PT OFF UNIT FOR PROCEDURE IN SAFE CONDITION.
--- NOTE | 2020-03-08 11:10 | NUR ---
PT IS BACK TO THE UNIT AFTER PROCEDURE. PT DENIES NEEDS AT THIS TIME.
--- NOTE | 2020-03-08 11:52 | Diagnostic Imaging Report ---
MRI MRCP WO HISTORY: ELEVATED BILIRUBIN COMPARISON: CT abdomen and pelvis 02/29/2020 TECHNIQUE: MRI of the abdomen with exam tailored to evaluate the biliary tree and the pancreas was performed without gadolinium contrast. Multiplanar, multisequence images, including heavily T2-weighted MRCP sequences were obtained. FINDINGS: Hepatobiliary Findings: Bile ducts: Mild focal dilation of the left hepatic duct focally just before its confluence with the right hepatic duct. Otherwise normal in caliber with no intraluminal filling defects. No strictures or dilated intra- or extrahepatic bile ducts. Liver: Unremarkable. Gallbladder: Unremarkable. Pancreas: Unremarkable. Additional Findings: Lung bases: Unremarkable. Spleen: Unremarkable Adrenals: Unremarkable Kidneys and ureters: Unremarkable. Bowel: Asymmetric mild wall thickening along the greater curvature of the stomach is similar to prior exam. Lymph nodes: Unremarkable. Peritoneum: Unremarkable. Vessels: Unremarkable Abdominal wall: Mild gynecomastia. Bones: Unremarkable. IMPRESSION: Mild focal dilation of the left hepatic duct focally just before its confluence with the right hepatic duct, could be related to a mild stenosis or pseudostenosis (from a crossing vessel). Otherwise normal MRCP. No cholelithiasis or choledocholithiasis and no dilation of the common bile duct. Asymmetric mild wall thickening along the greater curvature of the stomach is similar to prior exam, could be related to under-distention. Signed by: Papo Burris MD on 03/08/2020 11:49 AM
[2020-03-08 18:40] LABS: AMPHETAMINES SCREEN,URINE NEGATIVE (NEGATIVE); BENZODIAZEPINES SCREEN,URINE NEGATIVE (NEGATIVE); PHENCYCLIDINE SCREEN,URINE NEGATIVE (NEGATIVE)
--- NOTE | 2020-03-08 19:12 | NUR ---
BEDSIDE SHIFT REPORT GIVEN TO THE SCREENER PERFUMER RN. PT DENIED FURTHER NEEDS.
--- NOTE | 2020-03-08 19:14 | Consultation ---
DATE OF CONSULTATION: 03/08/2020 GI consult note CONSULTING PHYSICIAN: Albert Cervantes MD. REASON FOR CONSULT: 1. Abnormal liver enzymes. 2. Diarrhea. 3. Upper abdominal pain. HISTORY OF PRESENTING ILLNESS: A 19 years old male, who has been experiencing off and on diarrhea along with upper abdominal pain, 7/10 in intensity, intermittently persistent for last 1-2 months. He recently went to some urgent care center, has had some tests done. It is not clear whether he has had any CT scan. He was told that he has colitis. He was here in this hospital emergency room on February 28. At that time, a CT of the abdomen and pelvis was performed that showed mild asymmetrical gastric wall thickening, likely due to underdistention. He was discharged to home from the emergency room. Now again coming back with persistence of GI symptoms. Blood work revealed mildly elevated total bilirubin 2 to 3.9 with the rest of the liver parameters within normal limits. He is taking omeprazole at home without any much relief. On further questioning, the patient is stated that he has no prior history of peptic ulcer disease. Denies any chronic use of NSAIDs. Has not had any upper endoscopy in his life in the past. The patient also ended up getting MRCP done here on this admission. This showed asymmetric mild wall thickening of the greater curvature of the stomach as evident on the CT scan. No choledocholithiasis or cholelithiasis identified. Some nonspecific focal dilatation of the left hepatic duct was also noticed. Since admission, the patient has had three loose stools. The patient categorically denies any blood in the stool. No lower abdominal cramping. No bloody diarrhea. REVIEW OF SYSTEMS: Twelve point system reviewed. Symptomatology is limited to GI system. PAST MEDICAL HISTORY: None. PAST SURGICAL HISTORY: None. SOCIAL HISTORY: No smoking, alcohol, or any illicit drug use. ALLERGIES: NONE. HOME MEDICATIONS: Omeprazole 40 mg daily. INPATIENT MEDICATIONS: Ceftriaxone 1 g IV daily, metronidazole 500 mg IV q.8 hours, Zofran, and pantoprazole 40 mg IV daily. PHYSICAL EXAMINATION: VITAL SIGNS: Temperature 98, pulse 61, respirations 19, blood pressure 111/74, oxygen saturation 100% on room air. GENERAL: Not in any apparent distress. HEENT: Oral mucosa is moist. Anicteric sclerae. CVS: S1-S2 regular. LUNGS: Bilaterally grossly clear. ABDOMEN: Soft, nondistended, nontender. No mass or hernia. Positive bowel sounds. LABORATORY DATA: Sodium 139, potassium 3.8, chloride 108, bicarb 20, BUN 15, creatinine 0.99, and glucose 81. Liver enzymes showed a total bilirubin 2.6 down from 3.9, AST 14, ALT 15, alkaline phosphatase 108, and albumin 3.8. COVID serology is pending. WBC 6.98, hemoglobin 12.8, hematocrit 40.0, MCV 83.7, and platelet count 180. MRCP showed, 1. Mild focal dilatation of the left hepatic duct focally just before its confluence with the right hepatic duct, could be related to mild stenosis or pseudostenosis. otherwise normal MRCP. No cholelithiasis or choledocholithiasis. Common bile duct is not dilated. 2. Asymmetric mild wall thickening along the greater curvature of the stomach is similar to prior exam, could be related to underdistention. CT of the abdomen and pelvis with contrast was done on 02/29/2020 that showed a mild asymmetric gastric wall thickening along the greater curvature of the fundus. This may be related to gastric underdistention or mild gastritis. 3. No evidence of cholecystitis or appendicitis. So, intermittently persistent upper GI symptoms with upper abdominal pain, off and on diarrhea. The entire symptomatology is more consistent with dyspepsia and an irritable bowel syndrome. Mildly elevated total bilirubin is due to Gilbert's syndrome. Therefore, recommend to check direct bilirubin. If total bilirubin is elevated secondary to indirect hyperbilirubinemia, then it is Gilbert's syndrome. PLAN: Recommend to discontinue antibiotic as there is no clear-cut indication for antibiotic here. PPI daily. Avoid NSAIDs. Check urine toxicology to rule out any underlying occult use of illicit drugs. I have given the patient my business card. I told him to follow up with me in my office within one week after discharge. If the patient is tolerating oral diet, then he can be discharged home from GI standpoint, I thank Dr. Cervantes for allowing me to participate in the care of this patient. Yash Shahid MD SA/ANNA /[id number]
--- NOTE | 2020-03-08 19:24 | History and Physical ---
CHIEF COMPLAINT: Abdominal pain, left upper quadrant area associated with increase in total bilirubin. HISTORY OF PRESENT ILLNESS: The patient is a 19-year-old male who started to have some abdominal discomfort back in November. The patient at that time has some abdominal discomfort associated with diarrhea. He did not think of much anything, went to the emergency room Urgent Care at that time and was told to have some sort of a colitis. The patient since then he changed his diet around and apparently about two weeks ago he started to have another episode. The patient went to another emergency room and was told to go home and find a GI doctor. The patient could not find one assistant associate professor where he can follow up. The patient now came back in approximately two weeks now complaining of abdominal pain again. At the time of his abdominal pain approximately two weeks ago, he stated that he ate some [employer] food and then had some abdominal pain and diarrhea subsequently. The patient is otherwise stable. When he came in this time, his total bilirubin was 3.9, but for the past few weeks the patient was told not to eat anything heavy and just clear liquid diet or so and that his abdominal pain will be better and his diarrhea resolve and resume solid food. History is very much scattered here and there but nothing really significant. He did state today that he has some blood in the stool at times. When the patient came in this time, his liver enzyme is actually normal. His total bilirubin was 3.9, today it is 2.6. His BUN and creatinine were normal. The patient's WBC was normal. Hemoglobin and hematocrit otherwise unremarkable. He had an MRCP done, which showed that he had a mild focal dilatation of the left hepatic duct focally just before it is confluent with the right hepatic duct. This could be relating to a mild stenosis or pseudo-stenosis. Otherwise, it is a normal MRCP. No gallstone or choledocholithiasis. No dilatation of common bile duct. The patient has asymmetric mild wall thickening along the greater curvature of the stomach, is similar to prior exam, could be related to underdistention. The patient had abdominal and pelvic CT scan back in February of 2013 and at that time the CT scan showed mild asymmetric gastric wall thickening along the greater curvature of the fundus. Again, this may be related to underdistention of the mild gastritis. No evidence of gallstone or appendicitis at this time. The patient is otherwise stable, now he does not have any pain. He is awaiting for Gastroenterology consultation. PAST MEDICAL HISTORY: Started in November with some abdominal discomfort and symptoms of gastroenteritis. SOCIAL HISTORY: The patient does not smoke or use alcohol. No regular drug. ALLERGIES: NO KNOWN ALLERGIES. HOME MEDICATIONS: None. PHYSICAL EXAMINATION: VITAL SIGNS: Temperature is 98, blood pressure 117/82, pulse rate 62, respirations 18. GENERAL: The patient is not in acute distress. He is awake. HEENT: Normocephalic, atraumatic. Sclerae anicteric. NECK: Supple grossly. PULMONARY: Clear. CARDIOVASCULAR: Regular rate and rhythm. ABDOMEN: Soft and unremarkable. EXTREMITIES: No cyanosis or edema. NEUROLOGIC: No focal deficit. LABORATORY DATA: Sodium is 139, potassium 3.8, chloride 108, bicarb 20, BUN 15, creatinine 0.9, glucose is 81. WBC 6.9, hemoglobin 12.8, hematocrit 40, platelets is 180. AST is 14, ALT is 15, alkaline phosphatase is 108, total bilirubin from 3.9 to 2.6. Serology; coronavirus PCR is still pending. IMAGING TESTS: MRCP as mentioned above, mild focal dilatation of the left hepatic duct, focally just before it confluent with the right hepatic duct. There is no other significant finding on the MRCP. No gallstone. No stone in the duct. No dilatation of the common bile duct. IMPRESSION: 1. Abdominal pain. 2. Possible acute gastroenteritis. 3. Possible increase in bilirubin secondary to not eating. PLAN: Continue with IV fluid support. Full liquid diet and advance to bland diet as tolerated. We will continue with checking CMP in the morning. We will follow with Gastroenterology consultation and recommendation. MD MICHELLE Hillman/ANNA /[id number]
[2020-03-09] VITALS: BP 114/80
[2020-03-09 04:00] VITALS: BP 114/75
[2020-03-09] MEDS: SODIUM CHLORIDE 0.9% 1000ML 1,000 ML IV SCH (05:24)
[2020-03-09] MEDS: METRONIDAZOLE 500MG/NS 100ML 100 ML IV SCH (05:24)
[2020-03-09 06:29] LABS: BASOPHILS % 0.6 % (0.0-1.0); EOSINOPHILS # (AUTO) 0.1 (0.0-0.4); EOSINOPHILS % 1.9 % (0.0-6.0); HEMATOCRIT 37.5 % (38.2-49.6); HEMOGLOBIN 12.6 g/dL (14.0-18.0); LYMPHOCYTES # (AUTO) 2.6 (1.0-3.2); LYMPHOCYTES % 37.9 % (18.0-39.1); MEAN CORPUSCULAR HEMOGLOBIN 28.6 pg (28-32); MEAN CORPUSCULAR HGB CONC 33.6 g/dL (31-35); MEAN CORPUSCULAR VOLUME 85.2 fL (81-99); MONOCYTES # (AUTO) 0.6 (0.2-0.8); MONOCYTES % 9.4 % (4.4-11.3); NEUTROPHILS # (AUTO) 3.4 (2.1-6.9); NEUTROPHILS % 50.1 % (38.7-80.0); PLATELET COUNT 144 x10e3/uL (140-360); RED CELL DISTRIBUTION WIDTH 11.8 % (11.7-14.4)
[2020-03-09 06:49] LABS: ALANINE AMINOTRANSFERASE 14 IU/L (0-55); ALBUMIN 3.7 g/dL (3.5-5.0); ALBUMIN/GLOBULIN RATIO 1.6 (0.8-2.0); ALKALINE PHOSPHATASE 104 IU/L (40-150); ANION GAP 11.5 mmol/L (8-16); BLOOD UREA NITROGEN 6 mg/dL (7-26); BUN/CREATININE RATIO 7 (6-25); CALCIUM 8.6 mg/dL (8.4-10.2); CARBON DIOXIDE 23 mmol/L (22-29); CHLORIDE 109 mmol/L (98-107); CREATININE, SERUM 0.82 mg/dL (0.72-1.25); EST GLOMERULAR FILTRATION RATE > 60 ML/MIN (60-); GLUCOSE 87 mg/dL (74-118); POTASSIUM 3.5 mmol/L (3.5-5.1); SODIUM 140 mmol/L (136-145)
[2020-03-09 08:30] VITALS: BP 117/78
[2020-03-09] MEDS: PANTOPRAZOLE 40 MG 10ML VIAL IV SCH (09:02)
--- NOTE | 2020-03-09 09:45 | NUR ---
pt c/o abd oain and not able to tolerate clear liquids, pt states he vomits and cannot eat and pain in abd is worse. pt asked if nurse could call gi dr to ask if he can have his egd done during his hospital stay versus outpt. dr joe called to notify him of pt symptoms and request. dr joe states the egd is being done as outpt because pt pt has cannibis drug screen positive
[2020-03-09 12:00] VITALS: BP 134/82
[2020-03-09] MEDS ORDERED: ZOFRAN4 MG PO (12:12)
--- NOTE | 2020-03-09 16:23 | Discharge Summary ---
LENS GRINDER AND POLISHER: Dr. Shahid, Gastroenterology. CHIEF COMPLAINT: Abdominal pain, gastritis, and elevation of total bilirubin. HISTORY OF PRESENT ILLNESS: This is a 19 years male with recurrent abdominal pain, gastritis, and episodic diarrhea. The patient did not have any diarrhea on his presentation, but he complained of some abdominal discomfort. On evaluation, the patient's total bilirubin was elevated. The patient was placed on observation for an MRCP. His total bilirubin was 3.9. At that time, the patient for the past week or so did not eat. He was only on a liquid diet because he is thinking that may help his discomfort. His renal function was otherwise unremarkable. The patient's CBC was also unremarkable as well. He had a drug screen show urine barbiturates and marijuana. The patient stated he stopped that a few weeks ago. The patient is stable. He has not had symptoms while he is here. He did have an MRCP that was done showing that he had a mild focal dilatation of the left hepatic duct focally just before its confluence with the right hepatic duct. This could be a mild stenosis or pseudostenosis from crossing vessel, but otherwise a normal MRCP. No gallstones. No stone in the duct. No dilatation of the common bile duct. He does have some asymmetric mild wall thickening along the greater curvature of the stomach. Discussed with Dr. Shahid, Gastroenterology consultation. He recommended the patient to continue with the omeprazole. The patient will need to have an EGD as an outpatient at a later date. They recommended the patient to stop all the antibiotics and avoid NSAIDs. Dr. Shahid already spoke with the patient and gave him information for the patient to follow up as an outpatient visit. The patient is otherwise stable. I will go ahead and give the patient omeprazole 40 mg once a day. The patient is to follow up with Dr. Shahid in approximately 1-2 weeks. The patient is otherwise stable. Discussed with the patient that he can just eat a normal diet. The patient also should continue to stop taking any recreational drug use. The patient is otherwise stable. Total bilirubin now is 1.9. Direct bilirubin is 0.8. The patient is stable. Liver enzyme is normal. AST 20, ALT 21, alkaline phosphate is 141. Albumin is 3.7 normal. Amylase and lipase are normal as well. The patient is stable, discharged home today with omeprazole 40 mg daily and instruction for the patient to follow up as indicated. MD ROSCOE Hillman /[id number]
--- NOTE | 2020-03-09 16:29 | NUR ---
Nutrition Screen Note RD Recommendation for Physician: -Continue GI soft diet The patient meets criteria for unspecified SEVERE protein-calorie malnutrition. Plan of Care: RD following, monitoring for tolerance and adequacy Nutrition reason for involvement: consult Primary Diagnose(s): gastritis, hyperbilirubinemia PMH: Started in November with some abdominal discomfort and symptoms of gastroenteritis. Ht: 67 in Wt:157.13 lb BMI: 24.6 kg/m2 IBW:[address] Assessment: (03/09/20) Chart reviewed. Labs and meds reviewed. RD received consult. Pt is a 19 year old male admitted with gastritis and hyperbilirubinemia. RD spoke with pt this morning. Pt reports decreased intake (~50% of meals) for the past 13 days. Pt also reports he had weighed 180 lbs 2 weeks ago. Pt currently has a weight of 157 lbs in chart. If accurate, this would be a 13% weight loss in 1 month which is significant weight loss. Pt also reports having N/V as well as diarrhea. Provided pt with written materials regarding nutrition therapy for nausea and vomiting per pt request. Pt is now discharged Current Diet: GI soft Malnutrition Evaluation (03/09/20) The patient meets criteria for unspecified SEVERE protein-calorie malnutrition. Energy intake: 50% of estimated energy requirements for >5 days per pt report Weight loss: >5% in 1 month (Acute) per pt report Fat loss: no loss identified per observation Muscle loss: no loss identified per observation Supporting Evidence: Fluid accumulation: no edema per MD note Functional Status: no changes Diet Education Needs Assessment: Provided pt with written materials regarding nutrition therapy for nausea and vomiting Nutrition Care Level: moderate Signed: Anel Valiente RD, LD
== END 2020-03-09 13:04 | disposition home or self-care (01) ==
LOC: ER 18:47 → ERHOLD 20:17 → MED/SURG3 22:58
PROVIDERS: ADMIT Internal Medicine; ATTEND Internal Medicine
DX: K29.70 Gastritis, unspecified, without bleeding (principal); R74.8 Abnormal levels of other serum enzymes; Z11.59 Encounter for screening for other viral diseases; K21.9 Gastro-esophageal reflux disease without esophagitis
CPT/HCPCS: 36415 ×3; 74181; 80053 ×3; 80307; 82150 ×2; 82248; 83690 ×2; 85025 ×3; 99284; C9113 ×2; G0378 ×3; J0696; J2405; J7030 ×2; U0002

== ENCOUNTER 2021-03-10 08:33 | Emergency (ER) | payer OTHER, SELFPAY ==
[~2021-03-10] VITALS: Ht 170.2 cm; Wt 68.9 kg
[~2021-03-10 08:33] MED LIST changes: +ZOFRAN4 MG PO
[2021-03-10] MEDS ORDERED: IBUPROFEN 600 MG TAB PO STA (08:39)
[2021-03-10] MEDS ORDERED: ONDANSETRON HCL 4 MG ORAL DISINTEGRATING TAB PO ONE (08:45)
[2021-03-10] MEDS ORDERED: ONDANSETRON ODT4 MG PO (09:30)
[2021-03-10 10:12] LABS: CLARITY,URINE CLEAR (CLEAR); COLOR,URINE YELLOW (YELLOW); LEUKOCYTE ESTERASE ,URINE NEGATIVE (NEGATIVE); NITRITE,URINE NEGATIVE (NEGATIVE); PROTEIN,URINE DIPSTICK 1+ (NEGATIVE)
[2021-03-10 10:13] LABS: KETONES,URINE 2+ (NEGATIVE); URINE UROBILINOGEN 1 mg/dL (0.2 - 1)
[2021-03-10 10:32] LABS: BACTERIA,URINE FEW /HPF; CALCIUM OXALATE CRYSTALS,UR FEW (FEW); EPITHELIAL CELLS,URINE RARE /LPF; MUCUS,URINE MANY (RARE); WBC,URINE (MAN) 0-5 /HPF (0-5)
== END 2021-03-10 10:52 | disposition home or self-care (01) ==
LOC: ER 08:49
DX: K52.9 Noninfective gastroenteritis and colitis, unspecified (principal); R07.9 Chest pain, unspecified; R06.02 Shortness of breath; K21.9 Gastro-esophageal reflux disease without esophagitis; Z20.822 Contact with and (suspected) exposure to COVID-19
CPT/HCPCS: 71045; 81001; 99283; Q0162; U0002

== ENCOUNTER 2021-05-08 10:23 | Emergency (ER) | payer OTHER ==
[~2021-05-08] VITALS: Ht 170.2 cm; Wt 71.7 kg
[~2021-05-08 10:23] MED LIST changes: +ONDANSETRON ODT4 MG PO
[2021-05-08] MEDS ORDERED: SODIUM CHLORIDE 0.9% 1000ML 1,000 ML IV STA (11:16)
[2021-05-08 11:51] LABS: BASOPHILS % 0.5 % (0.0-1.0); EOSINOPHILS # (AUTO) 0.1 (0.0-0.4); EOSINOPHILS % 1.5 % (0.0-6.0); HEMATOCRIT 41.4 % (38.2-49.6); HEMOGLOBIN 13.4 g/dL (14.0-18.0); LYMPHOCYTES # (AUTO) 2.5 (1.0-3.2); LYMPHOCYTES % 33.7 % (18.0-39.1); MEAN CORPUSCULAR HEMOGLOBIN 27.7 pg (28-32); MEAN CORPUSCULAR HGB CONC 32.4 g/dL (31-35); MEAN CORPUSCULAR VOLUME 85.5 fL (81-99); MONOCYTES # (AUTO) 0.5 (0.2-0.8); MONOCYTES % 6.4 % (4.4-11.3); NEUTROPHILS # (AUTO) 4.2 (2.1-6.9); NEUTROPHILS % 57.4 % (38.7-80.0); PLATELET COUNT 187 x10e3/uL (140-360); RED BLOOD COUNT 4.84 x10e6/uL (4.3-5.7); RED CELL DISTRIBUTION WIDTH 11.7 % (11.7-14.4)
[2021-05-08 11:55] LABS: ALBUMIN 4.4 g/dL (3.5-5.0); ALBUMIN/GLOBULIN RATIO 1.8 (0.8-2.0); ANION GAP 12.1 mmol/L (8-16); CALCIUM 8.9 mg/dL (8.4-10.2); CREATININE, SERUM 0.86 mg/dL (0.72-1.25); POTASSIUM 4.1 mmol/L (3.5-5.1)
[2021-05-08] MEDS ORDERED: KETOROLAC TROMETHAMINE 30 MG/ML VIAL IV STA (12:31)
[2021-05-08] MEDS ORDERED: IBUPROFEN600 MG PO (12:32)
== END 2021-05-08 12:55 | disposition home or self-care (01) ==
LOC: ER 11:14
DX: E86.0 Dehydration (principal); R52 Pain, unspecified; Z87.19 Personal history of other diseases of the digestive system; Z20.822 Contact with and (suspected) exposure to COVID-19
CPT/HCPCS: 36415; 80053; 82550; 85025; 87400; 99284; J1885; J7030; U0002

== ENCOUNTER 2021-05-17 09:34 | Emergency (ER) | payer OTHER ==
[~2021-05-17] VITALS: Ht 170.2 cm; Wt 71.7 kg
[~2021-05-17 09:34] MED LIST changes: +IBUPROFEN600 MG PO
== END 2021-05-17 10:20 | disposition home or self-care (01) ==
LOC: ER 09:48
DX: R11.2 Nausea with vomiting, unspecified (principal); K52.9 Noninfective gastroenteritis and colitis, unspecified; K29.70 Gastritis, unspecified, without bleeding; K21.9 Gastro-esophageal reflux disease without esophagitis
CPT/HCPCS: 99283

== ENCOUNTER 2022-04-08 09:02 | Emergency (ER) | payer OTHER ==
[~2022-04-08] VITALS: Ht 170.2 cm; Wt 71.7 kg
[2022-04-08] MEDS ORDERED: KETOROLAC TROMETHAMINE 30 MG/ML VIAL IM STA (09:30)
[2022-04-08] MEDS ORDERED: NAPROXEN250 MG PO (09:38)
== END 2022-04-08 09:40 | disposition home or self-care (01) ==
LOC: ER 09:10
DX: M54.2 Cervicalgia (principal); R51.9 Headache, unspecified; K21.9 Gastro-esophageal reflux disease without esophagitis; Z87.19 Personal history of other diseases of the digestive system
CPT/HCPCS: 99282; J1885

== ENCOUNTER 2024-05-05 20:41 | Emergency (ER) | payer OTHER ==
[~2024-05-05] VITALS: Ht 170.2 cm; Wt 71.7 kg
[~2024-05-05 20:41] MED LIST changes: +DICYCLOMINE HCL10 MG PO; +NAPROSYN500 MG PO; +NAPROXEN250 MG PO
[2024-05-05 20:48] VITALS: TEMP 98.2
[2024-05-05] MEDS: SODIUM CHLORIDE 0.9% 1000ML 1,000 ML IV STA (21:33)
[2024-05-05 22:00] VITALS: PULSE 64; RESP 18
[2024-05-05] MEDS: KETOROLAC TROMETHAMINE 30 MG/ML VIAL IV STA (22:48)
[2024-05-05] MEDS ORDERED: KETOROLAC TROMETHAMINE 30 MG/ML VIAL ONE (22:49)
[2024-05-05 23:05] VITALS: BP 139/88; PULSE 74; RESP 18; TEMP 98.2; O2SAT 100
== END 2024-05-05 23:05 | disposition home or self-care (01) ==
LOC: FSED 20:48
DX: R07.89 Other chest pain (principal); F41.9 Anxiety disorder, unspecified; T40.721A Poisoning by synthetic cannabinoids, accidental (unintentional), initial encounter; Z87.19 Personal history of other diseases of the digestive system
CPT/HCPCS: 71046; 80053; 82553; 84484; 85025; 93005; 96360; 99283; J1885; J7030